=== PATIENT | female | born 1990 | race Caucasian/White ===

== ENCOUNTER 2018-01-08 23:39 | Emergency (ER) | payer MEDICAID, SELFPAY ==
[2018-01-08 23:40] VITALS: BP 120/78; PULSE 83; RESP 16; TEMP 36.7; O2SAT 98; BMI 20.5
--- NOTE | 2018-01-08 23:51 | ED.VISSUMM ---
- ER Visit Summary Date of Service: 01/08/18 Chief Complaint: Dental pain History of Present Illness: The patient is a 27 F known prior history of drug addiction for which she is currently states she has been sober. Patient recently saw her dentist was placed on ibuprofen and amoxicillin for dental decay and cavities. States she is having some numbness of her left lower lip. No other symptoms. Physical Examination: Well appearing young female. No acute distress. Vital signs are stable afebrile. H EENT exam no facial trauma. She has 2 piercings just below her left lower lip. The lip is not swollen. There is no facial droop. No difficulty smiling. Her mouth exam shows multiple areas of severe dental decay and cavities. Some of the teeth are already eroded down to the gumline. There are areas of gingivitis. No abscess. No trismus. No trouble swallowing or breathing. No drooling. Neck nontender no lymphadenopathy. Lungs clear to auscultation. Heart regular rhythm no murmur. Otherwise exam unremarkable. Test Results: None Emergency Department Course and Treatment: Clinically the patient has an unremarkable exam other than very poor dentition with dental decay and cavities. Also gingivitis. She is currently on amoxicillin and ibuprofen. She does not want any narcotic pain medication nor would I prescribe her any with her past medical history of addiction. Treatment Plan: Follow-up with her dentist as needed. Disposition: Discharge Impression: Acute on chronic dental pain and decay secondary to cavities and gingivitis History of prior drug addiction This note was generated with [employer] dictation software. It may contain incorrect words, spelling, and punctuation that were not noted in review of the chart prior to signing ED Disposition - Plan for ED Patient: Chief Complaint: Dental Referrals: Care Physician,No Primary [Primary Care Provider] -
--- NOTE | 2018-01-08 23:54 | ED.DCSUM_ITS ---
- ER Visit Summary Date of Service: 01/08/18 Chief Complaint: Dental pain History of Present Illness: The patient is a 27 F known prior history of drug addiction for which she is currently states she has been sober. Patient recently saw her dentist was placed on ibuprofen and amoxicillin for dental decay and cavities. States she is having some numbness of her left lower lip. No other symptoms. Physical Examination: Well appearing young female. No acute distress. Vital signs are stable afebrile. H EENT exam no facial trauma. She has 2 piercings just below her left lower lip. The lip is not swollen. There is no facial droop. No difficulty smiling. Her mouth exam shows multiple areas of severe dental decay and cavities. Some of the teeth are already eroded down to the gumline. There are areas of gingivitis. No abscess. No trismus. No trouble swallowing or breathing. No drooling. Neck nontender no lymphadenopathy. Lungs clear to auscultation. Heart regular rhythm no murmur. Otherwise exam unremarkable. Test Results: None Emergency Department Course and Treatment: Clinically the patient has an unremarkable exam other than very poor dentition with dental decay and cavities. Also gingivitis. She is currently on amoxicillin and ibuprofen. She does not want any narcotic pain medication nor would I prescribe her any with her past medical history of addiction. Treatment Plan: Follow-up with her dentist as needed. Disposition: Discharge Impression: Acute on chronic dental pain and decay secondary to cavities and gingivitis History of prior drug addiction This note was generated with [email or web address] dictation software. It may contain incorrect words, spelling, and punctuation that were not noted in review of the chart pr ior to signing ED Disposition - Plan for ED Patient: Chief Complaint: Dental Referrals: Care Physician,No Primary [Primary Care Provider] -
--- NOTE | 2018-01-08 23:54 | ED.DEP ---
ED Disposition - Plan for ED Patient: Disposition: Home or Assisted Living Chief Complaint: Dental Instructions: ED Tooth Pain, ED Cavity Dental Additional Instructions: Continue your current medications. Follow-up with your dentist as needed.
[2018-01-09 00:14] VITALS: PULSE 86; RESP 16; O2SAT 98
== END 2018-01-09 00:14 | disposition home or self-care (01) ==
PROVIDERS: Emergency Provider Emergency Medicine
DX: K05.10 Chronic gingivitis, plaque induced (principal); K02.9 Dental caries, unspecified; F19.21 Other psychoactive substance dependence, in remission
CPT/HCPCS: 99282

== ENCOUNTER 2019-01-13 13:44 | Emergency (ER) | payer SELFPAY ==
[2019-01-13 13:45] VITALS: BP 124/78; PULSE 75; RESP 14; TEMP 36.4; O2SAT 96; BMI 23.6
--- NOTE | 2019-01-13 14:11 | CT_ITS ---
STUDY: CT ABDOMEN AND PELVIS WITHOUT CONTRAST REASON FOR EXAM: Female, 28 years old. Left lower quadrant pain with nausea and vomiting RADIATION DOSAGE (If Supplied By Facility): CTDIvol = ( 6.67 ) mGy, DLP = ( 331.69 ) mGycm TECHNIQUE: Transaxial images were obtained from the dome of the diaphragm to the symphysis pubis without oral contrast, and without intravenous contrast. Sagittal and coronal images were reconstructed. Individualized dose optimization techniques were used for this CT. COMPARISON: None. FINDINGS: The visualized lung bases are unremarkable. The visualized portions of the heart are within normal limits. Normal liver. Normal gallbladder and extrahepatic biliary system. Normal spleen. Normal pancreas. Normal bilateral adrenal glands. Normal right kidney. Mild left hydronephrosis and hydroureter with 3 mm calculus in the left UVJ (on image 150. Normal visualized stomach. Normal small intestine. Normal colon. There is non-visualization of the appendix. Normal abdominal aorta. Normal inferior vena cava. Normal retroperitoneum. Normal urinary bladder. Normal abdominal wall. Normal osseous structures. CT/Abdomen/Pelvis without Cont IMPRESSION: 3 mm left UVJ calculus with mild hydronephrosis. Electronically Signed: Shan Parekh MD ([place]) at 15:27 EDT , Service support ,
--- NOTE | 2019-01-13 14:12 | ED.VIS.GEN ---
History of Present Illness Chief Complaint: Abd Pain Detail of Chief Complaint: Left lower quadrant pain Informant: Patient Onset: Days - 5 days Context: Sudden Onset Timing: Waxes and wanes Current Severity: Mild Maximum Severity: Moderate Narrative: Patient presents with left lower quadrant abdominal pain that started last Monday. She states that day she had nausea and vomiting as well. Nausea and vomiting resolved, but she continues to have intermittent pain in the left lower quadrant. Her menstrual cycle ended the day her symptoms started. She has not had diarrhea. She denies history of ovarian cyst. Past Medical History - Allergies and Home Meds Allergies/Adverse Reactions: Allergies latex Allergy (Verified 01/13/19 13:47) Hives Opioids - Morphine Analogues Adverse Reaction (Verified 01/13/19 13:47) Other RECOVERY ADDICT DOES NOT WANT OPIODS Primary Care Physician: Care Physician,No Primary [Primary Care Provider] - Prior records reviewed: Yes Past Medical History: - - Reviewed Surgical History: no surgical history Smoking Status: Former smoker Review of Systems General: Denies: Chills, Fever Eyes: Denies: Visual changes - bilaterally ENT: Denies: Bilateral ear pain Cardiovascular: Denies: Chest pain Respiratory: Denies: Dyspnea, Cough Gastrointestinal: Reports: Abdominal pain, Nausea, Vomiting. Denies: Diarrhea Genitourinary: Denies: Dysuria, Hematuria Musculoskeletal: Denies: Myalgias Skin: Denies: Rash Neurological: Denies: Headache Hematologic: Denies: Easy bruising Allergy: Denies: Uticaria Physical Exam Vital Signs/Narrative: Vital Signs Temp Pulse Resp BP Pulse Ox 01/13/19 13:45 97.5 F L 75 14 124/78 H 96 Inital Vital Signs reviewed: Yes General: Well nourished, Well developed Head: Normocephalic ENT: Moist mucous membranes Neck: Supple Cardiovascular: Regular rate, Regular rhythm Respiratory: No distress, CTA bilaterally Abdomen: Soft, Normal bowel sounds, Tender - Mild left lower quadrant tenderness to palpation.. Negative for: Guarding, Rebound tenderness Back: Negative for: CVA tenderness Extremities: Nontender Skin: Normal color Neurological: Alert, Oriented x3 Psychological: Normal affect Diagnostic/Tx/Re-eval Impressions Abdomen/Pelvis CT 01/13/19 14:11 IMPRESSION: 3 mm left UVJ calculus with mild hydronephrosis. Electronically Signed: Shan Parekh MD ([place]) at 15:27 EDT , Service support , 01/13/19 14:11 Abdomen/Pelvis without Cont [CT] Stat Laboratory Results 01/13/19 01/13/19 01/13/19 14:34 14:41 14:41 WBC 6.3 RBC 4.08 L Hgb 12.6 Hct 37.7 MCV 92.4 MCH 30.9 MCHC 33.4 RDW Std Deviation 42.6 RDW Coeff of Nasrin 12.6 Plt Count 274 MPV 9.7 Immature Gran % (Auto) 0.200 Neut % (Auto) 56.0 Lymph % (Auto) 31.0 [place] % (Auto) 7.6 Eos % (Auto) 4.3 Baso % (Auto) 0.9 Absolute Neuts (auto) 3.6 Absolute Lymphs (auto) 1.96 Nucleated RBC % 0 Sodium 139 Potassium 3.6 Chloride 108 H Carbon Dioxide 26.0 Anion Gap 5 BUN 9 Creatinine 0.64 Estim Creat Clear Calc 112.00 Est GFR (MDRD) Af Amer 139 Est GFR (MDRD) Non-Af 115 BUN/Creatinine Ratio 14.0 Glucose 99 Calcium 8.8 Serum , Qual Urine Color Yellow Urine Clarity Sl. Cloudy Urine pH 6.5 Ur Specific [place] 1.010 Urine Protein Negative Urine Glucose (UA) Normal Urine Ketones Negative Urine Occult Blood 150 H Urine Nitrite Negative Urine Bilirubin Negative Urine Urobilinogen Normal Ur Leukocyte Esterase 25 H Urine RBC 0-5 SEEN Urine WBC 0 SEEN Ur Squamous Epith Cells 0-5 SEEN Urine Bacteria RARE Urine Mucus 0 SEEN 01/13/19 14:41 WBC RBC Hgb Hct MCV MCH MCHC RDW Std Deviation RDW Coeff of Nasrin Plt Count MPV Immature Gran % (Auto) Neut % (Auto) Lymph % (Auto) [place] % (Auto) Eos % (Auto) Baso % (Auto) Absolute Neuts (auto) Absolute Lymphs (auto) Nucleated RBC % Sodium Potassium Chloride Carbon Dioxide Anion Gap BUN Creatinine Estim Creat Clear Calc Est GFR (MDRD) Af Amer Est GFR (MDRD) Non-Af BUN/Creatinine Ratio Glucose Calcium Serum , Qual NEGATIVE Urine Color Urine Clarity Urine pH Ur Specific [place] Urine Protein Urine Glucose (UA) Urine Ketones Urine Occult Blood Urine Nitrite Urine Bilirubin Urine Urobilinogen Ur Leukocyte Esterase Urine RBC Urine WBC Ur Squamous Epith Cells Urine Bacteria Urine Mucus - Medical Decision Making Patient was given Toradol on arrival. On repeat evaluation she does feel improved. Test results are discussed with her. She does have a 3 mm stone, just ready to fall into the bladder. Patient states the Toradol controlled her pain very well. She will be given Toradol for home along with Flomax. She will be referred to Dr. Fernandez if not improving. ED Disposition - Plan for ED Patient: Disposition: Home or Assisted Living Diagnosis: Kidney stone on left side Instructions: KIDNEY STONE w/ Colic Prescriptions: Tamsulosin HCl [Flomax] 0.4 mg PO DAILY #5 capsule Ketorolac [Toradol] 10 mg PO Q6H PRN #14 tablet PRN Reason: Pain Score 1-10/10 Referrals: Jung Fernandez MD [STAFF PHYSICIAN] - As Needed
[2019-01-13 14:38] LABS: Mucous, Urine 0 SEEN /hpf (<or=2+); White Blood Cells 0 SEEN /hpf (0-5)
[2019-01-13 14:41] LABS: Color, Urine Yellow (Yellow); Glucose, Dipstick Normal (Normal); Ketone-Dipstick Negative (Negative); Leukocyte Esterase-Dipstick 25 /ul (Negative); Nitrite-Dipstick Negative (Negative); Occult Blood-Urine 150 /ul (Negative); Protein-Dipstick Negative (Negative); Urine Bilirubin Dipstick Negative (Negative); Urine Clarity Sl. Cloudy (Clear); Urine Urobilinogen Normal (Normal); Urine pH 6.5 (5.0 - 8.0)
[2019-01-13 14:46] LABS: Absolute Lymphocyte Count 1.96 X10^3/uL (0.83-4.51); Absolute Neutrophil Count 3.6 X10^3/uL (2.0-7.7); Basophil# 0.06 X10^3/uL; Basophil% 0.9 % (0-1); Eosinophil# 0.27 X10^3/uL; Eosinophils% 4.3 % (0-5); Hematocrit 37.7 % (37-47); Hemoglobin 12.6 g/dL (12.0-15.0); Lymphocyte # 1.96 X10^3/ul (4.0); Mean Corp Hgb Conc 33.4 g/dL (32-36); Mean Corpuscular Hgb 30.9 pg (27.0-32.0); Mean Corpuscular Volume 92.4 fL (81-99); Mean Platelet Vol. 9.7 fl (6.2-12.0); Monocyte# 0.48 X10^3/uL; Monocyte% 7.6 % (0-10); NRBC Flagged by Analyzer 0 % (0-5); Neutrophil # 3.55 X10^3/uL (2.7-7.7); Platelet Count 274 K/mm3 (150-450); RBC Distribution Width CV 12.6 % (11.6-14.6); RBC Distribution Width SD 42.6 fl (35.1-43.9); Red Blood Count 4.08 M/mm3 (4.2-5.4); White Blood Count 6.3 K/mm3 (4.4-11.0)
[2019-01-13 14:50] LABS: Bacteria RARE /hpf (None Seen); Red Blood Cells-Urine 0-5 SEEN /hpf (0-5); Squamous Epithelial Cells - UA 0-5 SEEN /hpf (5-10)
[2019-01-13] MEDS: 0.9% Normal Saline 1,000 ML 150 ML IV (14:54)
[2019-01-13] MEDS: Ketorolac 30 MG/ML Syringe IV (14:54)
[2019-01-13 14:59] LABS: Anion Gap 5 (5-15); BUN 9 mg/dL (7-18); Calcium,Total 8.8 mg/dL (8.5-10.1); Chloride 108 mmol/L (98-107); Creatinine, Serum 0.64 mg/dL (0.55-1.02); EST Glomerular Filtration Rate 115 mL/min (>60); Est Glom Filt Rate - Afr Amer 139 mL/min (>60); Glucose 99 mg/dL (74-106); Potassium 3.6 mmol/L (3.5-5.1); Sodium Level 139 mmol/L (136-145)
[2019-01-13 15:02] LABS: Internal QC Validated? YES +Cl - CLEAR BKGD; Pregnancy, Serum, hCG Quali. NEGATIVE Negative
[2019-01-13 15:39] VITALS: BP 108/74; PULSE 54; RESP 16
== END 2019-01-13 15:46 | disposition home or self-care (01) ==
PROVIDERS: Emergency Provider Emergency Medicine
DX: N13.2 Hydronephrosis with renal and ureteral calculous obstruction (principal); Z87.891 Personal history of nicotine dependence; Z88.5 Allergy status to narcotic agent; Z91.040 Latex allergy status
CPT/HCPCS: 74176; 80048; 81001; 84703; 85025; 96361; 96374; 99283; J7030; A4216

== ENCOUNTER → 2022-10-07 | Outpatient (CLI) | payer MEDICAID, SELFPAY ==
[2022-10-07 15:10] LABS: Hematocrit 36.6 % (37-47); Hemoglobin 12.5 g/dL (12.0-15.0); Mean Corp Hgb Conc 34.2 g/dL (32-36); Mean Corpuscular Hgb 31.6 pg (27.0-32.0); Mean Corpuscular Volume 92.4 fL (81-99); Mean Platelet Vol. 11.5 fl (6.2-12.0); Platelet Count 265 K/mm3 (150-450); RBC Distribution Width CV 12.5 % (11.6-14.6); RBC Distribution Width SD 42.5 fl (35.1-43.9); Red Blood Count 3.96 M/mm3 (4.2-5.4); White Blood Count 5.7 K/mm3 (4.4-11.0)
[2022-10-07 15:36] LABS: ALB/GLOB Ratio 1.1 RATIO (0.9-2.4); AST(SGOT) 31 U/L (15-37); Alanine Aminotransfer ALT/SGPT 152 U/L (13-56); Albumin, Serum 3.9 g/dL (3.2-5.0); Alkaline Phosphatase 52 U/L (45-117); Anion Gap 6 (5-15); BUN 7 mg/dL (7-18); BUN/Creat Ratio 10.2 RATIO (10-20); Calcium,Total 8.6 mg/dL (8.5-10.1); Chloride 108 mmol/L (98-107); Cholesterol 209 mg/dL (200); Creatinine, Serum 0.68 mg/dL (0.55-1.02); EST Glomerular Filtration Rate 105 mL/min (>60); Est Glom Filt Rate - Afr Amer 127 mL/min (>60); Globulin 3.5 g/dL (2.2-4.2); Glucose 104 mg/dL (74-106); High Density Lipoprotein 55 mg/dL; Iron Binding Capacity,Total 315 ug/dL (250-450); Potassium 3.6 mmol/L (3.5-5.1); Protein, Total 7.4 g/dL (6.4-8.2); Sodium Level 137 mmol/L (136-145); Thyroid Stim Hormone (TSH) 0.28 uIU/mL (0.358-3.74); Triglycerides 65 mg/dL; Very Low Density Lipoprotein 13 mg/dL (5-40)
[2022-10-07 15:37] LABS: Vitamin D,25 Hydroxy 25.2 ng/mL
[2022-10-07 15:40] LABS: Hemoglobin A1c 4.9 % (3.8-5.6)
== END | disposition home or self-care (01) ==
PROVIDERS: Referring Provider Counselor Mental Health; Visit Provider Counselor Mental Health
DX: Z79.899 Other long term (current) drug therapy (principal); E55.9 Vitamin D deficiency, unspecified; E78.2 Mixed hyperlipidemia; E61.1 Iron deficiency
CPT/HCPCS: 36415; 80053; 80061; 82306; 83036; 83550; 84443; 85027

== ENCOUNTER 2023-08-07 09:25 | Outpatient (RCR) | payer MEDICAID, SELFPAY ==
--- NOTE | 2023-08-07 09:01 | BH.SGPN.GN ---
Behaviors/Verbalizations/Mental Status: [] Pt eye contact good, casually dressed, motor activity appropriate, speech normal rate and tone, mood euthymic and anxious, congruent affect, thoughts linear and intact, no evidence of delusions or hallucinations. Per daily symptom tracker pt denies active SI and intention. Client Response/Progress/Benefit: [] Client appeared to listen attentively to others and sharing openly with group. Per daily sympton tracker client reports 3/5 for anxiety and 0/5 for depression. Client reported mental health positive as quitting marijuana five days ago. Client shared she started to realize how much marijuana was negatively impacting her mental health so really wants to stop using it completely. Client reported additional positive is showing up to IOP for her first day today. Appeared to benefit from support from peers. Will continue IOP tx to improve daily functioning, increase healthy coping skills, and prevent decopmensation.
--- NOTE | 2023-08-07 09:30 | BH.COMM_ITS ---
Communication Note Communication with Client Communication Note: Met with patient to update pre-admission screening and complete psychosocial and initial paperwork. Completed [place] Suicide Screening with low risk. Review case with Dr. Taylor with plan to start IOP today with diagnosis of F33.2.
--- NOTE | 2023-08-07 10:10 | BH.SGPN.GN ---
Behaviors/Verbalizations/Mental Status: [] Eye contact is good. Motor activity is appropriate. Appearance is casual. Speech is Appropriate. Mood is anxious. Affect is congruent. Thoughts are linear and logical. No evidence of psychosis. Client Response/Progress/Benefit: [] Pt participated at times. Attentive. Participated in and was engaged during experiential activity. Able to relate experiential activity to group topic of FOF. Engaged during interactive discussion on what failure means to the group in which peers identified and defined failure and Fear of Failure. Group was able to identify impact of fear of failure on mental health identifying that it can cause procrastination, avoidance, self-sabotage behaviors, etc. Attentive during interactive discussion on the impact that FOF can have on mental wellness, depression, anxiety, career, relationships, and growth. Benefited from increased awareness of how the role that FOF plays in mental health and decision-making. Will continue in IOP prevent decompensation, stabilize mood, and improve healthy coping skills. Narrative Note: []
--- NOTE | 2023-08-07 11:08 | BH.SGPN.GN ---
Behaviors/Verbalizations/Mental Status: []Pt alert and oriented, neatly dressed and groomed. Eye contact good. Motor activity appropriate. Speech within normal limits. Affect congruent, mood euthymic and anxious. Thoughts linear, logical, no signs of hallucinations or delusions. Client Response/Progress/Benefit: []Pt responded well to session, engaged in the experiential activity and attentive throughout group processing. Pt reported fear of failure has kept pt from coming out and quitting drugs in the past. Pt completed fear of failure worksheet and was able to identify thoughts and behaviors that reinforce personal fear of failure including self-fulfilling prophecies, negative core beliefs, and procrastinating. Pt participated in group discussion regarding strategies to overcome fear of failure. Identified wanting to work on using opposite action and noting how it went and avoiding unnecessary stressors. Appeared to benefit from increased knowledge of strategies to combat fear of failure and gaining self-awareness. Pt will continue IOP tx to prevent decompensation, improve daily functioning, and gain healthy coping skills. Narrative Note: []
--- NOTE | 2023-08-08 09:05 | BH.SGPN.GN ---
Behaviors/Verbalizations/Mental Status: [] Pt alert and oriented, neatly dressed and groomed. Eye contact good. Motor activity appropriate. Speech within normal limits. Affect congruent, mood anxious. Thoughts linear, logical, no signs of hallucinations or delusions. Reviewed pt?s symptom tracker, no risk for suicidal ideation, plan, or intent 08/08/23 Client Response/Progress/Benefit: []Pt responded well to session, attentive and engaged. Pt reports feeling empowered this morning and shared I think I'm getting a hold of this. Pt's second day of IOP tx and she shared she enjoyed it so far. Pt stated her stressor/win is that pt decided to stop smoking marijuana and this has been a good thing and a challenge. Pt discovered that when she smoked she became more paranoid, but smoking was also a way to avoid. Pt is currently six days sober and she has been trying to distract herself to prevent a relapse. Pt appeared to benefit from connecting with peers and getting feedback. Pt will continue IOP tx to prevent decompensation, gain healthy coping skills, and combat distortions. Narrative Note: []
--- NOTE | 2023-08-08 10:05 | BH.SGPN.GN ---
Behaviors/Verbalizations/Mental Status: [] Client alert and oriented, casually dressed and groomed. Eye contact good. Motor activity appropriate. Speech within normal limits. Affect congruent, mood anxious and euthymic. Thoughts linear, logical, no signs of hallucinations or delusions. Client Response/Progress/Benefit: [] Client was an active participant, AEB taking notes and providing input in group discussions and activities. Attentive during psychoeducation. Client engaged during interactive discussion in which the group defined self-care and discussed its benefits. Group discussed barriers to engaging in self-care. Group members together came up with guilt, anxiety, and feeling weak as barriers to engage in self care. Client participated in small groups where they worked to identify common self-care ?myths?. Benefited from increased awareness of self-care, its benefits, and the consequences of not utilizing self-care strategies. Will continue IOP tx to prevent decompensation, promote healthy coping skill application, and continue to improve mood stability. Narrative Note: []
--- NOTE | 2023-08-08 11:05 | BH.SGPN.GN ---
Behaviors/Verbalizations/Mental Status: [] Client alert and oriented, casually dressed and groomed. Eye contact good. Motor activity appropriate. Speech within normal limits. Affect congruent, mood anxious and euthymic. Thoughts linear, logical, no signs of hallucinations or delusions. Client Response/Progress/Benefit: [] Client engaged participant AEB completing self-assessment of current self care and providing input throughout discussion. Client completed worksheet identifying current self-care practices and what self-care activities client wants to start using. Client selected financial self-care to begin practicing more consistently. Client plans to do this by setting a budget for herself. Appeared to benefit from completing the self-care evaluation and gaining insights into current self-care practices, as well as identifying areas in which client would like to improve upon. Client will continue IOP tx to prevent decompensation and increase overall functioning. Narrative Note: []
--- NOTE | 2023-08-09 09:00 | BH.NA_ITS ---
Physical Data Vital Signs Pulse Rate: 91 Blood Pressure: 114/77 Height/Weight Height: 1.63 m Weight:: 54.431 kg Weight in Pounds: 120.0 lbs Current Medication Compliance Medication Compliance Do you take your medication as prescribed?: Yes Nutritional History Appetite Nutritional Instructions: Describe your appetite:: Good Additional nutritional information:: Client states she had no appetite for 3 days after stopping the use of marijuana, but states her appetite has returned. Denies recent change in weight. Functional Assessment Sleep Pattern Describe any problems with sleeping: Client states she has been sleeping 8-10 hours per day. Sensory/Communication Assess Communication Problems Do you have difficulty understanding what people are saying?: No Medical Problems/History Genitourinary Conditions Genitourinary: Other (See comments) (history of kidney stones) Pain Assessment Do you have acute or chronic pain?: No Surgical History Surgical History Have you had any surgeries? If so, list type and date:: No Substance Abuse Substance Abuse Please describe substance abuse in the last 30 days:: Client states she has been sober from alcohol since March 2023. Client states she vapes nicotine usually at night right before bed but none during the day. Client has a history of meth and opioid use, states she has been sober for 5 years. Client has morphine listed as an allergy in her chart because she does not want to take any opioids due to wanting to keep her sobriety. Client states for the last 2 years or so, she had been using copious amounts of marijuana daily. Client states she has been sober from marijuana for 7 days. Client states she drinks 1-2 energy drinks per day, but states she never uses more than 300mg of caffeine per day. Mental Status Summary Mental Status Significant Findings/Observations on Appearance and Mood:: Client is alert and oriented x 4. Client is casually groomed. Client is cooperative with assessment. Client makes good eye contact. Client's voice has normal rate and volume. Client appears somewhat anxious with a mood congruent affect. Client makes logical associations and has normal processing. Client states she had been having some paranoia and hallucinations over the last year while using copious amounts of marijuana (being paranoid that her neighbors knew everything she was doing and saying, hearing voices) but these have completely stopped since she stopped using marijuana. Client denies current SI. Suicide Assessment Suicidal Ideation Are you currently or have you been suicidal in the past?: Yes Suicidal Intentional Rating Scale (SIRS): Suicidal thoughts (past) Physician Notification Past Psychiatric History MH Treatment Hx Past Psychiatric Medications:: Ativan, Remeron, Trazodone Age of first mental health symptoms: Client states she was first on medication for mental health around age 15, and has been on and off medication since. Client states she was diagnosed with bipolar around 2009 when she was hospitalized while in the [place]. Describe (age, circumstance, etc) any past hospitalizations: Client states she was hospitalized at the age of 15 or 16 at [facility] after a suicide attempt, and once around 2009 when she was in the [place] for SI with a plan. Client states she has had 5 suicide attempts in the past, the last being 2018. Fall Risk Assessment Age Age: Less than 60 Mental Status Mental Status: Willing & able to ask for assistance when needed Physical Status Physical Status: No problems Impairments Impairments: None Elimination Elimination: Continent AND independent Gait or Balance Gait or Balance: Walks independently Hx of Falls History of falls in the past 6 months: No known history Medications/Substances Psychotropics:: Antidepressants and Antipsychotics Medications/substances used within the past 24 hours or ordered to administer: 1-2 of the medications/substances listed above Total Score Total Points:: 1 RN Summary of Impressions Impressions Recommendations Impressions: Psychiatric Issues: 1. Bipolar 1 disorder, most recent episode depression in partial remission (F31.75) 2. Generalized anxiety disorder 3. Marijuana use disorder (sober x 1 week) 4. Alcohol use disorder (sober x 5 months) 5. 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 Client states she has been having emotional outbursts, and she knows this is affecting her girlfriend and her mom. Client reports irritability, mood instability, and decreased concentration. Client states she had been having paranoia and hallucinations when she was using copious amounts of marijuana, but states she has been sober for 7 days and hallucinations have subsided. Client has a history of 5 suicide attempts. Client denies SI at this time. Client states I feel like my medication is working pretty well, but I could really use some skills to help me cope. IOP will promote gains and prevent further decompensation while providing social support and skills training.
--- NOTE | 2023-08-09 09:05 | BH.SGPN.GN ---
Behaviors/Verbalizations/Mental Status: [] Eye contact is good. Motor activity is restless. Appearance is casual. Speech is Appropriate. Mood is anxious. Affect is congruent. Thoughts are linear and logical. No evidence of psychosis. Reviewed daily check in sheet and no reports of suicidal ideations or intent. Client Response/Progress/Benefit: [] Pt was an active participant in group discussion. Attentive. Daily symptom tracker notes 2/5 for anxiety and agitation. Reports feeling exhausted today, however also believes that she may be hypomanic. Discussed suspicion that trigger to hypomania could be stopping cannabis. Also reports how stopping cannabis significantly reduced depression, paranoia and hallucinations. Medication compliant however her mood has been erratic with emotional outbursts often in the past year. She talked a great deal about the negative impacts of cannabis and how she minimized its use because its wasn't a hard drug. Benefited from group support, encouragment, and feedback. Will continue in IOP to prevent decompensation, stablize mood, and increase healthy coping skills. Narrative Note: []
[2023-08-09 09:41] VITALS: BP 114/77; PULSE 91
--- NOTE | 2023-08-09 11:10 | BH.SGPN.GN ---
Behaviors/Verbalizations/Mental Status: [] Client alert and oriented, casually dressed and groomed. Eye contact good. Motor activity appropriate. Speech within normal limits. Affect congruent, mood anxious. Thoughts linear, logical, no signs of hallucinations or delusions. Client Response/Progress/Benefit: [] Client responded well to session, engaged and taking notes throughout. Worked with group to connect components of the experiential activity with characteristics of healthy and unhealthy relationships. Attentive during psychoeducation about characteristics of healthy, unhealthy, and abusive relationships. Client reported she would like to work on self-soothing to stay calm during conversations and challenge catastrophizing thoughts. Appeared to benefit from identifying current healthy relationship attributes and an area client wants to work on to build healthier relationships. Client to continue IOP to improve distress tolerance, increase healthy coping skills, and prevent decompensation.
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
--- NOTE | 2023-08-09 12:17 | BH.DR.ITP ---
Initial Treatment Plan Patient Information Visit Information: ADMISSION DATE: EXPECTED LOS: 4-6 weeks Problems/Symptoms Problem #1:: Erratic moods Symptom:: Sadness, irritability, anger outbursts, history of biological disruption of sleep, low energy, decreased concentration, guilt. Problem #2:: Anxiety Symptom:: Worry, panic attacks, rumination, restlessness, avoidance
--- NOTE | 2023-08-09 14:37 | BH.MDN ---
Multi-Disciplinary Note Note 60-min Individual: Time Started:: 12:20 Date: 08/09/23 Purpose of session/treatment goals addressed:: Purpose of session was to gather background information, build rapport, and identify treatment goals for IOP level of care. Eye Contact:: Good Motor Activity:: Restless Appearance:: Casual Speech:: Rambling and Rapid Mood:: Anxious Affect:: Congruent Thoughts:: Logical, Racing and No evidence of hallucinations/delusions noted Staff Interventions:: CBT techniques, rapport building, strengths perspective, treatment planning and goal setting Client Response:: Client stated so far she is enjoying IOP since starting this week. Client reported she is seeking treatment because she recognizes her ability to manage her emotions as a challenge which often leads her to either relapse on alcohol/drugs or sabotage her relationship. Client stated her girlfriend recommended client to this program and client realized after a recent disagreement she needs help with mood stabilization and help with managing emotions in the moment. Client reported her girlfriend is very supportive but they've had their ups and downs in the last year and a half. Client stated they broke up in February after client started to drink alcohol again but got back together in March when she got sober again From alcohol. Client shared she has significant history of alcohol and drug use throughout her life. Client shared she first used opiates In marijuana at age 13 and she first used her mom's opiates until she was 20 years old. At age 20 she began snorting painkillers and did heroin 3-4 times but at 25 years old became sober from opiates. She then began using methamphetamine from age 26 to age 28 for about 2 years and then went to rehab for this in 2018 and has been sober from hard drugs since except for marijuana and alcohol. That stated she has been sober from alcohol since April 03, 2023. She quit cigarette use in 2019. She started using marijuana about 2-1/2 years ago and quit it 1 week ago because felt it was not beneficial. Client shared she recognizes her marijuana use was contributing to paranoia. Client stated since being sober from marijuana over the last week she no longer is hearing things that aren't there. Client reported while she's in IOP she really wants to learn how to manage distress more effectively and improve her ability to recognize her own emotions. Risks/Concerns:: Client denies suicidal ideation, plan, or intention to date. future oriented. Progress Toward Goals/Plan:: No progress observed, first week in IOP. Client struggling with emotion regulation, erratic moods, and irritability which negatively impacts her relationships. Client has long history of substance use, but reports sobriety from alcohol and drugs. Client expresses desire to maintain sobriety because she recognizes it will help her gain more from the program. Client is to continue IOP to improve mood stability, improve distress tolerance, and prevent decompensation. Time Stopped:: 13:15
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
--- NOTE | 2023-08-09 14:39 | BH.MTP ---
[facility] Treatment Plan Patient Information Program Physician:: Dr. Taylor Primary Therapist:: Josie Rogers, [facility] Psychiatric Diagnoses Psychiatric Diagnoses:: 1. Bipolar 1 disorder, most recent episode depression in partial remission (F31.75) 2. Generalized anxiety disorder 3. Marijuana use disorder (sober x 1 week) 4. Alcohol use disorder (sober x 5 months) 5. Methamphetamine and opiate use disorder (sober x 5 years) in full remission Diagnosis Code(s):: F31.75 Estimated LOS Estimated LOS (in weeks):: 6 Problem/Goal #1 Problem/Goal #1 Stated Goal:: Client will increase mood stability and decrease depressive symptoms, anger/irritability, and suicidal ideation due to Bipolar I through Intensive Outpatient Program. Description of Barriers: Potential barriers include recent sobriety, negative thought patterns, agitation, erratic moods, and impulsivity. Functional Impact: The patient is a 33-year-old single female with a history of bipolar 1 disorder and anxiety who was referred by her partner to the [facility] behavioral health IOP for erratic moods, irritability and anger outbursts. The patient also has a history of methamphetamine/opiate use disorder (sober x 5 years) and alcohol use disorder (sober x 4 months). The patient was on [facility] from [employer] for 12 years for mental health issues. Patient states that since stopping marijuana 7 days ago she no longer feels as depressed and feels that she could be getting a little hypomanic but is uncertain. Energy is somewhat increased overall but this could be due to energy drinks she says. Concentration is a little decreased. She denies passive thoughts of , suicidal ideation, plan for suicide, homicidal ideation. Objectives Objective #1: Stated Objective: Client will learn and utilize 2-3 healthy coping strategies to manage depressive symptoms. Interventions: Therapist will utilize CBT techniques to assist client with understanding the connection between thoughts, feelings and behaviors. Education will be provided on behavioral activation. Therapist will assist client in learning internal coping strategies to manage depressive symptoms, along with helping client identify triggers. Discharge Criteria: Client will have achieved this goal when can verbalize and has practiced at least 2 healthy coping strategies that successfully manage depressive symptoms. Target Date: 09/18/23 Review Date: 09/04/23 Objective #2: Stated Objective: Client will identify and replace 2-3 negative thinking patterns that reinforce depression and feelings of agitation. Interventions: Assist the client in identifying, challenging, and replacing dysfunctional thoughts with positive self-enhancing thoughts. Discharge Criteria: Client will have achieved this goal when can identify at least 2 negative thinking patterns and replace thoughts with rational thoughts. Target Date: 09/18/23 Review Date: 09/04/23 Problem/Goal #2 Problem/Goal #2 Stated Goal:: Stabilize anxiety level while increasing ability to function on daily basis. Description of Barriers: Potential barriers include recent sobriety, negative thought patterns, agitation, erratic moods, and impulsivity. Functional Impact: The patient is a 33-year-old single female with a history of bipolar 1 disorder and anxiety who was referred by her partner to the [facility] behavioral health IOP for erratic moods, irritability and anger outbursts. The patient also has a history of methamphetamine/opiate use disorder (sober x 5 years) and alcohol use disorder (sober x 4 months). The patient was on disability from [employer] for 12 years for mental health issues. Patient states that since stopping marijuana 7 days ago she no longer feels as depressed and feels that she could be getting a little hypomanic but is uncertain. Energy is somewhat increased overall but this could be due to energy drinks she says. Concentration is a little decreased. She denies passive thoughts of , suicidal ideation, plan for suicide, homicidal ideation. Objectives Objective #1: Stated Objective: Client will learn and implement 2-3 calming skills to reduce overall anxiety and manage anxiety symptoms. Interventions: Therapist and group sessions will help client identify physiological warning signs of anxiety, increase awareness of thoughts that increase anxiety, and identify behaviors that reinforce anxious symptoms. Group and individual counseling will teach client calming skills to help manage anxious symptoms. Discharge Criteria: Client will have achieved this goal when can verbalize at least 2 calming skills and reports skills successfully help reduce anxious symptoms. Target Date: 09/18/23 Review Date: 09/04/23 Objective #2: Stated Objective: Client will identify 2-3 anxiety triggers and 2 coping skills to use when feeling anxious. Interventions: Therapist will assist client in exploring what triggers anxiety and teach client coping strategies to effectively manage anxiety symptoms. Discharge Criteria: Client will have met this goal when can identify at least 2 triggers to anxiety and verbalize two healthy ways to cope with feelings of anxiety. Target Date: 09/04/23 Review Date: 09/18/23
--- NOTE | 2023-08-15 09:05 | BH.SGPN.GN ---
Behaviors/Verbalizations/Mental Status: [] Eye contact is good. Motor activity is appropriate. Appearance is casual. Speech is Appropriate. Mood anxious. Affect is congruent. Thoughts are linear and logical. No evidence of psychosis. Reviewed daily check in sheet and no reports of suicidal ideations or intent. Client Response/Progress/Benefit: [] Pt was an active participant in group discussion. Attentive. Daily symptom tracker notes / for depression and irritability. She reports difficult weekend. She reports breaking up with her GF and relapsing on cannabis. She elaborated more on the events of the weekend and how they impacted her thoughts, actions, and emotions. Reports panic attacks and depressive thoughts. Ruminating on her relapse and reports beliefs that she is a failure. Benefited from group support, encouragement, and feedback. Peers were able to reframe thoughts, point out growth, and highlight areas which she utilized healthy skills. Pt was able to work through her panic attacks which increased her confidence. She also reports that cannabis use ' didn't help and actually made her thoughts and emotions worse. She also only used once. Pt was also able to complete opposite action and socialize with friends that she hasn't seen in an extended period of time. She didn't isolate when in distress. Will continue in IOP to prevent decompensation, stabilize mood, and improve functioning. Narrative Note: []
--- NOTE | 2023-08-15 10:15 | BH.SGPN.GN ---
Behaviors/Verbalizations/Mental Status: []Eye contact is good. Motor activity is appropriate. Appearance is casual. Speech is Appropriate. Mood is anxious. Affect is congruent. Thoughts are linear and logical. No evidence of psychosis. Client Response/Progress/Benefit: [] Pt was actively engaged, providing input at times, and taking notes throughout session. Connected with the topic of pitfalls and listened to group discussion on internal and external barriers that prevent from choosing a healthier path to mental wellness. Group worked together to identify examples of personal internal pitfalls and pt identified theirs as using unhealthy coping skills, pushing people away, and struggling to accept her diagnosis. Pt benefited from group as pt learned to better identify and normalize potential barriers to improving mental health symptoms. Pt also gained awareness of the difference between external triggers and self-sabotaging behaviors. Will continue in IOP to prevent decompensation, improve daily functioning, and increase distress tolerance skills. Narrative Note: []
--- NOTE | 2023-08-15 11:15 | BH.SGPN.GN ---
Behaviors/Verbalizations/Mental Status: []Pt alert and oriented, casually dressed and groomed. Eye contact good. Motor activity appropriate. Speech within normal limits. Affect congruent, mood anxious and dysthymic. Thoughts linear, logical, no signs of hallucinations or delusions. Client Response/Progress/Benefit: [] Pt receptive of session, engaged throughout AEB actively contributing and listening to discussion, as well as taking notes. Pt participated in the experiential activity and processed with group how their emotions, perspective, and reactions positively and negatively impacted the outcome. Pt identified pitfalls they struggle with and shared wanting to work on pitfall of lack of taking on too much too fast by practicing small attainable goals daily. Benefited from identifying personal pitfalls and strategies to overcome these pitfalls. Will continue IOP tx to prevent decompensation and relapse, further improve daily functioning, and promote mood stability as well as ongoing application of healthy coping skills. Narrative Note: []
--- NOTE | 2023-08-16 09:05 | BH.SGPN.GN ---
Behaviors/Verbalizations/Mental Status: [] Eye contact is good. Motor activity is appropriate. Appearance is casual. Speech is Appropriate. Mood is anxious. Affect is congruent. Thoughts are linear and logical. No evidence of psychosis. Reviewed daily check in sheet and no reports of suicidal ideations or intent. Client Response/Progress/Benefit: [] Pt was an active participant in group discussion. Attentive. Emotion for today is tranquil and more calm. She attributes this to medication changes and decrease in caffeine usage. She had been drinking 2 energy drinks per day for a number of years and recently stopped. I don't have the feeling like my insides are going to burst out. Has gone on several nature walks in recent days and also has been journaling both of which she has found helpful. Overall reports less anxiety, restlessness, and mood stability since medication changes and decrease in caffeine. Progress noted. Benefited from group support, encouragement, and feedback. Will contine in IOP to stablize mood, prevent decompensation, and increase healthy coping. Narrative Note: []
--- NOTE | 2023-08-16 10:10 | BH.SGPN.GN ---
Behaviors/Verbalizations/Mental Status: []Client alert and oriented, casually dressed and groomed. Eye contact good. Motor activity appropriate. Speech within normal limits. Affect congruent, mood euthymic. Thoughts linear, logical, no signs of hallucinations or delusions. Client Response/Progress/Benefit: []Pt engaged in session AEB listening attentively to others and providing input throughout. Pt engaged in activity, able to connect how it can be uncomfortable and difficult to accept when things are out of one?s own control. Pt worked with group to identify what things in life can be hard to accept. Group identified things hard to accept as: change, loss of relationship, mental health diagnosis, other?s behaviors, and finances. Pt identified struggling to accept her bipolar diagnosis and that she will need to take medications for the rest of her life. Seemed to benefit from increased awareness of importance of acceptance. Pt to continue IOP tx to further improve mood stability, application of healthy coping skills, and prevent decompensation.
--- NOTE | 2023-08-16 11:10 | BH.SGPN.GN ---
Behaviors/Verbalizations/Mental Status: []Pt alert and oriented, neatly dressed and groomed. Eye contact good. Motor activity appropriate. Speech within normal limits. Affect congruent, mood anxious. Thoughts linear, logical, no signs of hallucinations or delusions. Client Response/Progress/Benefit: [] Pt responded well to session AEB taking notes and contributing to discussion throughout. Pt engaged as group continued discussion on acceptance and the mental health benefits of practicing acceptance. Pt and peers identified what makes acceptance challenging and pt completed a self-reflection exercise on what is hard to accept in pt's life. Pt identified what is hard to accept in life and how it makes things harder when resists acceptance. Pt reports it is hard to accept that ?my life isn?t together.? Group identified strategies to increase acceptance and pt wants to work on ?I can love someone and not want them in my life.? Pt appeared to benefit from gaining insight and learning strategies to increase acceptance. Pt will continue IOP tx to prevent decompensation, improve distress tolerance, and combat distortions. Narrative Note: []
--- NOTE | 2023-08-16 14:38 | BH.MDN_ITS ---
Multi-Disciplinary Note Note 60-min Individual: Time Started:: 12:05 Date: 08/16/23 Purpose of session/treatment goals addressed:: Purpose of session was to address goals 1 and 2 from MTP. Eye Contact:: Good Motor Activity:: Restless Appearance:: Casual Speech:: Rambling Mood:: Anxious Affect:: Congruent Thoughts:: Logical and No evidence of hallucinations/delusions noted Staff Interventions:: thought challenging, CBT techniques, mindfulness skills, rapport building, strengths perspective, goal setting and taught coping skills Client Response:: Client stated over the weekend she did break up with her girlfriend. Client reported although it may seem impulsive to break up with her girlfriend she believes it was a healthy choice for her after reflecting on it for several days now. Client stated she's come to realize that her and her ex communicate differently and handle problems very differently which is why she thinks they've had consistent issues throughout the relationship. Client reported there was a situation at a [employer] and it led to clients girlfriend making a comment about clients behavior which client thought was an overreaction. Client reported in the moment she decided to leave the republican so that there wasn't a public argument. Client stated what she finds frustrating within the relationship is that her now ex-girlfriend often would want to talk about a situation or disagreement for hours when in client's perspective it could get resolved in less than an hour. Client reported she just realizes it's not something that she thinks is good for her while she's trying to get mentally well. Client stated via text messaging on Monday she broke up with her girlfriend. Client reported she did end up smoking marijuana as a coping skill which she was upset with herself for doing so. Client stated however she thinks it might have been good for her experience because she really didn't enjoy herself being high. Client reported she had no relief and now can refer to this situation to hopefully help her prevent any future relapses. Client stated originally, she did come to [facility] to help her relationship and by her girlfriend?s recommendation. Client reported now that she's not in a relationship she still wants to complete the program with the focus on increasing extracurricular activities, learning anxiety management skills, and learning how to manage her emotions in the moment more effectively. Client said she's going to focus on bettering herself while she's in the program instead of just quitting because she's not in that relationship anymore. Client open to exploring possible volunteering options because she thinks having more structure/routine to her week will decrease boredom and give her purpose. Risks/Concerns:: Denies suicidal ideation, plan, or intention to date. future oriented. Progress Toward Goals/Plan:: Decompensation noted with client having a relapse one day over the weekend as a form of coping with a stressful situation. Client has recovered from this stressor and recognizes use of marijuana/substances doesn't make her feel any better. Client did end relationship over weekend, but in her perspective focusing on herself only will be beneficial to her mental health recovery. Client is to continue IOP to increase consistent use of healthy coping skills, improve emotion regulation, and prevent decompensation. Time Stopped:: 13:05
--- NOTE | 2023-08-18 09:05 | BH.SGPN.GN ---
Behaviors/Verbalizations/Mental Status: [] Eye contact good. Motor activity appropriate. Speech within normal limits. Affect congruent, mood content and anxious. Thoughts linear, logical, no signs of hallucinations or delusions. Reviewed client?s symptom tracker, denies SI, plan, or intent as of 08/18/2023. Client Response/Progress/Benefit: [] Client receptive of session, attentive and willing to process with group. Identified mental health ?wins? today as ?continuing to reduce caffeine and is planning to completely eliminate it from her diet by the end of the weekend. Discussed noticing improvements in her anxiety and ability to focus since reducing caffeine. Additional win noted as putting her facial piercing back in which pt explained signifies an improvement in her mood and reduction of depression as pt reports not wearing them when sad. Current stressor noted as adjusting to being single again and reminding herself of the importance of not jumping into another relationship right away as she would in the past. Receptive of and appeared to benefit from supportive feedback and suggestions from the group. Recommended continued IOP tx to continue to improve mood stability, promote consistency of skill application and positive self-talk, and prevent decompensation. Narrative Note: []
--- NOTE | 2023-08-18 11:15 | BH.SGPN.GN ---
Behaviors/Verbalizations/Mental Status: []Client alert and oriented, casually dressed and fairly groomed. Eye contact good. Motor activity appropriate. Speech within normal limits. Affect congruent, mood depressed, anxious. Thoughts linear, logical, no signs of hallucinations or delusions. Client Response/Progress/Benefit: []Pt was engaged throughout AEB contributing to group discussion and self-reflection. Group finished processing cues to anger worksheet. Pt contributed as group brainstormed healthy coping skills for better managing anger which included: music, walking/exercise, taking a break, reflection, and journaling. Attentive in discussion about identifying personal anger cycle. Stated will work on journaling and temperature change as skills/strategies to prevent unhealthy anger response. Pt appeared to benefit from identifying different techniques to manage anger as well as gaining awareness of potential consequences of unmanaged anger. Pt to continue IOP to
== END 2023-08-18 23:59 ==
LOC: BHIOP 09:25
PROVIDERS: Visit Provider Psychiatry & Neurology Psychiatry
DX: F31.75 Bipolar disorder, in partial remission, most recent episode depressed (principal); F41.1 Generalized anxiety disorder; F12.90 Cannabis use, unspecified, uncomplicated; F10.90 Alcohol use, unspecified, uncomplicated; F11.90 Opioid use, unspecified, uncomplicated; F14.90 Cocaine use, unspecified, uncomplicated; Z79.899 Other long term (current) drug therapy
CPT/HCPCS: 90792; H2012; H2020; S9480; T1002; 90837

== ENCOUNTER 2023-08-21 08:12 | Outpatient (RCR) | payer MEDICAID, SELFPAY ==
--- NOTE | 2023-08-18 10:10 | BH.SGPN.GN ---
Behaviors/Verbalizations/Mental Status: [] Eye contact is good. Motor activity is appropriate. Appearance is casual. Speech is Appropriate. Mood is anxious. Affect is full. Thoughts are linear and logical. No evidence of psychosis Client Response/Progress/Benefit: [] Pt responded well to session AEB contributing to small group discussion, taking notes, and listening attentively to others. Participated during interactive discussion in which pt and peers defined anger and discussed the benefits of managed anger and anger as a secondary emotion. Group identified several emotions which can drive anger which included; pain, confusion, jealously, regret, loss, embarrassment, and exhaustion. Appeared to benefit from increased knowledge of the anger cycle as well as personal triggers. Will continue IOP to prevent decompensation, increase healthy coping skills, and stabilize mood. Narrative Note: []
[2023-08-19 02:40] VITALS: BP 114/77; PULSE 91
--- NOTE | 2023-08-21 09:05 | BH.SGPN.GN ---
Behaviors/Verbalizations/Mental Status: [] Eye contact is good. Motor activity is appropriate. Appearance is casual. Speech is Appropriate. Mood is anxious. Affect is congruent. Thoughts are linear and logical. No evidence of psychosis. Reviewed daily check in sheet and no reports of suicidal ideations or intent. Client Response/Progress/Benefit: [] Pt was an active participant in group discussion. Attentive. Daily symptom tracker notes 03/24 for anxiety. Emotion for today is tired. Pt states no caffeine today. She has considerable decrease her caffeine intake since starting IOP. She had been drinking multiple energy drinks in the AM. She noticed less anxiety and restlessness however admits she is somewhat sluggish as she had been drinking excessive caffeine for 15 years. Completing self-care. Feeling more hopeful recently. She combated an urge to smoke cannabis. Admits to continued isolation and other stressors. Progress noted. Will continue in IOP to prevent decompensation, stabilize mood, and increase healthy coping skills. Narrative Note: []
--- NOTE | 2023-08-21 10:15 | BH.SGPN.GN ---
Behaviors/Verbalizations/Mental Status: []Pt alert and oriented, casually dressed and groomed. Eye contact good. Motor activity appropriate. Speech within normal limits. Affect congruent, mood content, anxious. Thoughts linear, logical, no signs of hallucinations or delusions. Client Response/Progress/Benefit: [] Pt connected with topic of anxiety and participated throughout, providing input and taking notes. Participated throughout interactive discussion defining anxiety and identifying cognitive and physiological symptoms of anxiety. Group discussed how anxiety can prevent them from trying new things. Pt identified their physical signs of anxiety as: clenched jaw, hair twirling, and restlessness. Pt identified safety behaviors as: cancelling plans, isolating, and lashing out. Benefited from increased awareness and insight on anxiety and its impact. Pt will continue IOP tx to prevent decompensation, improve daily functioning, and increase self-care. Narrative Note: []
--- NOTE | 2023-08-21 11:15 | BH.SGPN.GN ---
Behaviors/Verbalizations/Mental Status: []Pt alert and oriented, neatly dressed and groomed. Eye contact good. Motor activity appropriate. Speech within normal limits. Affect congruent, mood euthymic. Thoughts linear, logical, no signs of hallucinations or delusions. Client Response/Progress/Benefit: [] Pt was an active participant AEB pt providing input and listening attentively to peers. Attentive during psychoeducation on mindfulness coping skills and their impact on reducing anxiety and improving overall mental health wellness. Group was able to identify self-soothing and mind-based coping skills which included: 5-senses, meditation, deep breathing, TIPP, thought challenging, and progressive muscle relaxation. Pt also participated with peers in practicing mindfulness skills in session. Pt would like to work on positive self-talk to help manage anxiety. Appeared to benefit from increasing repertoire of anxiety reduction skills. Pt will continue IOP tx to promote mood stability, gain healthy coping skills, and improve daily functioning. Narrative Note: []
--- NOTE | 2023-08-21 14:57 | BH.MDN_ITS ---
Multi-Disciplinary Note Note 60-min Individual: Time Started:: 12:05 Date: 08/21/23 Purpose of session/treatment goals addressed:: Purpose session was to address goals 1 and 2 from MTP. Eye Contact:: Good Motor Activity:: Restless Appearance:: Casual Speech:: Rapid Mood:: Euthymic Affect:: Full Thoughts:: Logical and No evidence of hallucinations/delusions noted Staff Interventions:: thought challenging, CBT techniques, strengths perspective, goal setting and taught coping skills Client Response:: On Monday she urged to smoke marijuana because she was bored. Client stated she utilized the crisis urges worksheet provided from previous session that helped her recognize the potential consequences of using again. Client she was able to stop herself from smoking and instead went hiking with one of her best friends to help distract her. Client stated she is proud of herself for being able to work through the urge because in the past she likely would have just smoked. Client reported in addition to feeling excited about refraining from returning to old negative coping skills she also chose to complete an online volunteer form for the [facility] [employer]. 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 Client stated choosing to herself out there for volunteering helped her feel like a sense of purpose. Client reported she does struggle sometimes with being on disability from the and recognizes lack of purpose and boredom tend to be triggers to engaging in alcohol or drug use. Client stated having some consistent maybe 2 times a week volunteering will give her a schedule and make her feel like she is contributing in someway. Client discussed activities that can help provide structure and engage in something that she enjoys is hiking/being in nature, playing video games, and being creative. Client stated she recognizes it would be helpful for her to get back into painting which is something she has not done in quite a while. Client encouraged to continue getting back involved in activities that she once enjoyed. Risks/Concerns:: Denies suicide ideation, plan, intention. Progress Toward Goals/Plan:: Progress noted with client reporting ability to refrain from reverting back to unhealthy coping skills like choosing to not smoke marijuana over the weekend. Client stated she is proud of herself for being able to do this because she recognizes how important her sobriety is in order to maintain mood stability. Progress can also be noted with client reporting having a sense of purpose since deciding volunteering would be a good move for her. Client to continue IOP to promote use of healthy coping skills, challenge distortions, and prevent decompensation. Time Stopped:: 13:00
--- NOTE | 2023-08-24 09:05 | BH.SGPN.GN ---
Behaviors/Verbalizations/Mental Status: [] Eye contact is good. Motor activity is appropriate. Appearance is casual. Speech is Appropriate. Mood is anxious. Affect is congruent. Thoughts are linear and logical. No evidence of psychosis. Reviewed daily check in sheet and no reports of suicidal ideations or intent. Client Response/Progress/Benefit: [] Pt was an active participant in group discussion. Emotion for today is hyped. She reports that she had caffeine this AM after going several days without and is definitely feeling the effects. Overall stopping caffeine has been beneficial for her mental health and functioning however she reports excessive fatigue in the AM. Group discussion on role of caffeine on anxiety, restlessness, irritability, and communication. She remains committed to decreased us however is hoping to find a way to ingest a small amount of caffeine in the AM to help. She is also setting self-care goals which are helping to decrease isolation and increase activity. Narrative Note: []
--- NOTE | 2023-08-24 10:10 | BH.SGPN.GN ---
Behaviors/Verbalizations/Mental Status: []Pt alert and oriented, casually dressed and groomed. Eye contact good. Motor activity appropriate. Speech within normal limits. Affect congruent, mood euthymic. Thoughts linear, logical, no signs of hallucinations or delusions. Client Response/Progress/Benefit: []Pt was an active participant in group discussion and activity. Attentive during psychoeducation. Along with peers, pt was able to identify barriers to taking action in their life. Identified several symptoms and stressors that pt feels are holding them back from progress such as avoidance, catastrophizing, and negative self-talk. Stated these things have kept pt from loving herself. Pt shared that she wants to begin addressing negative self-talk. Benefited from increased self-awareness of obstacles. Will continue IOP tx to improve mood management, promote consistent skill application, and further improve self-confidence. Narrative Note: []
--- NOTE | 2023-08-24 11:10 | BH.SGPN.GN ---
Behaviors/Verbalizations/Mental Status: []Pt alert and oriented, neatly dressed and groomed. Eye contact good. Motor activity appropriate. Speech within normal limits. Affect congruent, mood energetic. Thoughts linear, logical, no signs of hallucinations or delusions. Client Response/Progress/Benefit: []Pt responded well to session, taking notes and participating in worksheet discussion. Pt connected with the discussion on motion vs action steps and this helped pt learn how to set goals differently. Pt set a goal to reduce negative self-talk. Pt identified motion steps including hanging up a list of affirmations, scheduling self-talk while playing pokemon, and using the mirror as a reminder. Pt also made action steps which included plans to follow through with speaking nicely to herself multiple times in the morning. Appeared to benefit from identifying a small goal to benefit mental health. Will continue IOP tx to promote mood stability, combat negative thinking patterns, and improve daily functioning. Narrative Note: []
--- NOTE | 2023-08-29 09:05 | BH.SGPN.GN ---
Behaviors/Verbalizations/Mental Status: [] Eye contact is good. Motor activity is appropriate. Appearance is casual. Speech is Appropriate. Mood is anxious. Affect is congruent. Thoughts are linear and logical. No evidence of psychosis. Reviewed daily check in sheet and no reports of suicidal ideations or intent. Client Response/Progress/Benefit: [] Pt was an active participant in group discussions. Attentive. Able to identify mental health wins and healthy habits. Completing exposure goals. Negative thoughts, guilt, and embarrassment at times for ?not working? and being on disability. 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 Will avoid common shopping areas (i.e. [employer]) for fear of ?running into someone I know?. Increased self-care, acceptance, and reframing has been beneficial in the past few weeks. Tearful at times when discussing her struggles with mental health stating ? this just triggers some bad memories?. Progress noted. Benefited from group support, encouragement, and feedback from peers. Will continue in IOP to stabilize mood, improve functioning, and prevent decompensation. Narrative Note: []
--- NOTE | 2023-08-29 10:10 | BH.SGPN.GN ---
Behaviors/Verbalizations/Mental Status: [] Eye contact is good. Motor activity is appropriate. Appearance is casual. Speech is Appropriate. Mood is euthymic. Affect is congruent. Thoughts are linear and logical. No evidence of psychosis. Client Response/Progress/Benefit: [] Client responded well to session AEB sharing and listening attentively to others. Group identified types of social support (family, pets, professionals, spiritual, etc) and provided examples of benefits of having social support, including: decreased stress, increased self-esteem, encouragement, distraction, etc. Client shared she often allows unhealthy people into her network which leads to more harm to her. Client also participated in group discussion regarding the barriers to accessing support such as: lack of awareness, lack of trust, and low self-esteem. Client participated in experiential activity illustrating the impact communication, boundaries, and patience play in creating healthy support systems. Client appeared to benefit from increased knowledge of the benefits of social support and greater self-awareness. Will continue IOP to improve distress tolerance, continue practicing calming skills, and prevent decompensation.
--- NOTE | 2023-08-29 11:10 | BH.SGPN.GN ---
Behaviors/Verbalizations/Mental Status: [] Client alert and oriented, casually dressed and groomed. Eye contact good. Motor activity appropriate. Speech within normal limits. Affect congruent, mood euthymic. Thoughts linear, logical, no signs of hallucinations or delusions. Client Response/Progress/Benefit: [] Client was an active participant throughout AEB contributing to discussion, providing personal examples, and taking notes. Client processed emotions felt in the activity and how they coped in the moment. Client provided input during discussion on the types of support our supports can provide. Client able to identify current support system and barriers that get in the way of using supports by drawing out their own support net. Client reported after identifying what type of supports they receive; they gained awareness that they could benefit from more social supports. Client identified steps to achieve this by challenging himself to follow-through with making and keeping plans with friends. Client shared increasing social supports will help them have more of a sense of belonging. Client seemed to benefit from identifying the type of support client needs to work on improving. Client recommended to continue IOP tx to promote continued application mindfulness and emotion regulation skills and increase healthy boundary setting skills. Narrative Note: []
--- NOTE | 2023-08-29 14:57 | BH.MDN ---
Multi-Disciplinary Note Note 60-min Individual: Time Started:: 12:10 Date: 08/29/23 Purpose of session/treatment goals addressed:: Purpose of session was to address goals 1 and 2 from MTP. Eye Contact:: Good Motor Activity:: Restless Appearance:: Casual Speech:: Appropriate Mood:: Euthymic Affect:: Full Thoughts:: Linear, Logical and No evidence of hallucinations/delusions noted Staff Interventions:: thought challenging, CBT techniques, strengths perspective, goal setting and taught coping skills Client Response:: Client reported she is starting to realize that since ending her relationship her anxiety has significantly decreased. Client stated she thinks and further reflecting on the relationship there were parts of it that just were not healthy for her. Client reported she recognizes that she tended to feel like she was walking on eggshells with her ex because client did not want to have to engage in a several hour conversation over something that in client's perception was small. Client reported she recognizes continuing to focus on herself and refrain from engaging in romantic relationships during this time will significantly benefit her mental health. Client stated she plans to go on a self date this weekend to watch a movie on her own. Client reported she feels like her mood has been improved with not feeling as much impending doom about her future. Client stated she realizes she can be okay on her own which will allow herself to build her confidence and explore her own wants and needs. Client reported she did attend a virtual AA meeting but did not stay for the whole meeting because did not like the personality of the lead. Client reported she does tend to struggle with certain people at meetings which she believes is why she has not been going to any and portion. Client does recognize getting back into AA could be beneficial for her because it provides belonging and accountability. Client open to looking for a local meeting that she would be willing to attend in person just to give herself a chance to see if it something that could be an additional support for her. Risks/Concerns:: Denies suicide ideation, plan, intention. Future oriented. Progress Toward Goals/Plan:: Progress noted with client reporting improved mood and decreased anxiety. Client starting to work on relationship with herself which is something she has not done in quite a while. Client starting to realize the importance of feeling confident within herself and being okay with being on her own. Client shared she tends to absorb herself and to the other person during the relationship which has resulted in her not really knowing what she likes or what she wants in her life. Client starting turning in self-exploration and figuring out her own likes and needs. Client to continue IOP to promote use of healthy coping skills, challenging distortions, and prevent decompensation. Time Stopped:: 13:05
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
--- NOTE | 2023-08-30 10:15 | BH.SGPN.GN ---
Behaviors/Verbalizations/Mental Status: []Patient was alert and oriented, casually dressed and groomed. Eye contact was good, motor activity normal, speech within normal limits. Affect congruent, mood euthymic. Thoughts linear, logical, no signs of hallucinations or delusion Client Response/Progress/Benefit: [] Pt participated in the group discussions AEB providing input and taking notes. Attentive during psychoeducation Goal Setting. Participated during the discussion on common barriers which the group identified as: lack of motivation, not knowing where to start, not feeling good enough, and lack of support. Group also identified benefits sense of purpose, improved self-confidence, more motivation for other goals, and improved mental health.Pt reflected back on how accomplishing a goal helped pt give up my vices. Benefited from increased awareness of mental health benefits of goals as well as psychoeducation on SMART goal criteria. Will continue in IOP to improve mood stability, increase emotional regulation skills, and reduce negative thinking patterns. Narrative Note: []
--- NOTE | 2023-08-30 11:47 | PCM.BH.PN_ITS ---
Progress Note Progress Note: History of Present Illness/Interim History: The patient is a 33-year-old single female with a history of bipolar 1 disorder and anxiety who is seen in follow-up at the [facility] behavioral health IOP. I last saw the patient 3 weeks ago and at that time we decreased her Zoloft to help with her rapid cycling and increase her Lamictal to help with mood stabilization. The patient states that her mood is more stable and she feels less depressed than she did before. She feels much Colmer overall also. She has cut out energy drinks and decreased her caffeine use to less than 50 mg of caffeine once or twice a day now. She remains sober from marijuana also. Cording to the staf f she has been engaged in the program and consistent in attendance and making progress. She remains sober also from meth amphetamine and alcohol. She denies passive thoughts of , suicidal ideation, plan for suicide, homicidal ideation, hallucinations, delusions or symptoms of hypomania or quyen. Current Psychiatric Medications: [] Seroquel 150 mg p.o. nightly (x 1 year); Zoloft decreased to 50 mg 3 weeks ago; Lamictal increased to 100 mg p.o. nightly 2 weeks ago. Mental Status Examination: [] Patient is a 33-year-old slender female who appears normal for for stated age and has numerous tattoos bilaterally on her arms. She is ambulatory with a normal gait and casually dressed and groomed with good hygiene. She has no psychomotor agitation or retardation. She is cooperative and pleasant during the interview. Eye contact is good and speech is normal rate and rhythm and fluent with no pressure. Mood is euthymic. Affect is full and normal. Thought process is goal-directed and organized. Thought content: The patient is hopeful for the future. There is no evidence of passive thoughts of , suicidal ideation, homicidal ideation, hallucinations or delusions. Reality testing is intact. Intelligence is average. Judgment is intact. Insight is fair and improving. Impulsivity is moderate. Diagnoses: [] 1. Bipolar 1 disorder, most recent episode depression in full remission (F31.76) 2. Generalized anxiety disorder 3. Marijuana use disorder (sober x 1 month) 4. Alcohol use disorder (sober x 6 months) 5. 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 Primary support issues Plan: [] The patient will continue the IOP and behavioral health at [facility] as the structure, support, education and group therapy will hopefully prevent worsening of the patient's symptoms. She felt safe during the interview and if it anytime she does not feel safe she agrees to let us know or go to the emergency room. The risk, options, possible complications and side effects of the medications were again discussed with the patient and she understands and accepts these. The patient agrees to continue to use only small amounts of caffeine in the morning only. She agrees to stay sober from all drug use. She agrees to discontinue her Zoloft as we felt it it was increasing to her rapid cycling of moods. No other medication changes were made. She will continue to follow-up with her outpatient providers and I will see the patient in follow-up in 2 to 3 weeks or as needed.
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
--- NOTE | 2023-08-30 14:37 | BH.MTP_ITS ---
Treatment Plan Review Demographics Date of Admission:: 08/07/23 Date of Treatment Plan Review:: 08/30/23 Admitting Diagnoses:: 1. Bipolar 1 disorder, most recent episode depression in partial remission (F31.75) 2. Generalized anxiety disorder 3. Marijuana use disorder (sober x 1 week) 4. Alcohol use disorder (sober x 5 months) 5. Methamphetamine and opiate use disorder (sober x 5 years) in full remission Current Diagnoses:: 1. Bipolar 1 disorder, most recent episode depression in partial remission (F31.75) 2. Generalized anxiety disorder 3. Marijuana use disorder (sober x 1 week) 4. Alcohol use disorder (sober x 5 months) 5. Methamphetamine and opiate use disorder (sober x 5 years) in full remission Patient Status Patient's Response to Treatment:: Pt has responded well to treatment AEB consistent attendance, actively engaged in group sessions, and open/honest about symptoms and feelings in individual counseling. Status of Current Problems and Symptoms: Client reporting recent spike in anxious symptoms due to relationship trigger, but despite feeling increase in anxiety from this stressor she reports ability to use healthy coping skills to manage emotions in the moment. Client stated she was able to stop herself from having a panic attack which she recognizes isn't something she has often been able to do. Client also experienced urges to go back to smoking marijuana last weekend, but was able to use pros/cons crisis list to prevent relapse. Client starting to see the value of going to AA meetings in person again, but her anxious thoughts are continuing to keep her from attending. Client open to working on this and getting back to in person. Progress Problem #1: Problem Name:: Mood Instability - depression Status of Goals:: Obj 1 - met, ongoing work encouraged. Per DSM 5 cross- cutting measure pt's depression decreased by 67% compared to admission scores. Client is doing better with managing moods in the moment and reports anger has decreased significantly since ending relationship. Obj 2 - partially met. Client can identify negative thoughts, but needs continued work on independently challenging thoughts. Team Recommendations:: Team recommends continue current goals and object karl to reinforce healthy skill use, decrease anxious avoidance, and continue working on challenging negative/distorted thoughts independently. Problem #2: Problem Name:: Anxiety Status of Goals:: obj 1 - partially met, ongoing work encouraged. Client is able to identify calming skills like breathing, grounding, and stretching to help relieve anxious symptoms. Client has been reporting improvement with managing anxiety, but still notes some avoidance of certain situations. Per DSM 5 cross-cutting measure anxiety has decreased by 44%. Obj 2 - partially met, ongoing work encouraged. Client is able to identify anxiety triggers like boredom, being around others that are using, and extreme emotions. Client still working on building healthy skills to manage these triggers in the moment. Team Recommendations:: Team recommends continue current goals and objectives to reinforce healthy skill use, decrease anxious avoidance, and continue working on challenging negative/distorted thoughts independently.
--- NOTE | 2023-09-01 09:00 | BH.SGPN.GN ---
Behaviors/Verbalizations/Mental Status: [] Eye contact good. Motor activity appropriate. Speech within normal limits. Affect congruent, mood euthymic. Thoughts linear, logical, no signs of hallucinations or delusions. Reviewed client?s symptom tracker, denies SI, plan, or intent Client Response/Progress/Benefit: [] Pt was an active participant in group discussions. Attentive. Daily symptom tracker notes limited distress. Pt reports that she is very elated today. Reports that reached out to [facility] and is going to volunteer for them. Tearful stating these are happy tears. Reports limited purpose and meaning in her life due to mental health impacting her ability to work and function, however this volunteering opportunity will allow her to utilize her talents as well as help others. States that Monday was low and I was freaking out. She was struggling with negative thoughts however was able to utilize skills to regulate emotions. Progress noted. Benefited from group support, encouragement, and feedback. Will continue in IOP to prevent decompensation, malachi mood, increase healthy coping, and to improve functioning. Narrative Note: []
--- NOTE | 2023-09-01 10:10 | BH.SGPN.GN ---
Behaviors/Verbalizations/Mental Status: []Eye contact is good. Motor activity is appropriate. Appearance is neat. Speech is Appropriate. Mood is euthymic. Affect is congruent. Thoughts are linear and logical. No evidence of psychosis Client Response/Progress/Benefit: [] Pt was an active participant in group discussion and experiential activity. Attentive during psychoeducation on resilience. Participated during interactive discussion with peers on the definition of resilience. Able to relate experiential activity of group juggle to topics of resilience. Group worked together to identify what can impact one's ability to be resilient which included past experiences, trauma, toxic support system, lack of resources, and current mental/physical health state. Worked well with peers in small group in which they identified factors that contribute to building resilience. Pt?s group worked on the importance of keeping things in perspective. Benefited from increased awareness of resilience and the factors that contribute to building resilience. Will continue in IOP to promote mood stability, improve self-confidence, and reduce negative thinking patterns. Narrative Note: []
--- NOTE | 2023-09-01 11:10 | BH.SGPN.GN ---
Behaviors/Verbalizations/Mental Status: []Pt alert and oriented, causally dressed and appropriately groomed. Eye contact good. Motor activity appropriate. Speech within normal limits. Affect congruent, mood euthymic. Thoughts linear, logical, no signs of hallucinations or delusions. Client Response/Progress/Benefit: [] Pt responded well to session AEB completing the resilience worksheet provided. Pt participated in the discussion and worked cooperatively with group to identify strategies to enhance each of the components discussed. Pt reports belief they already use resilience traits of??self-awareness and maintain a hopeful outlook. Pt stated they would like to continue to develop resilience trait of ?nuturing a positive view of self? as pt recognizes she struggles with saying nice things about self. Pt seemed to benefit from discussing strategies for improving personal resilience and identifying resilience traits pt already possesses. Will continue IOP tx to improve emotion regulation, challenge distortions, and prevent decompensation.
--- NOTE | 2023-09-05 10:10 | BH.SGPN.GN ---
Behaviors/Verbalizations/Mental Status: [] Eye contact is good. Motor activity is appropriate. Appearance is casual. Speech is Appropriate. Mood is euthymic. Affect is congruent. Thoughts are linear and logical. No evidence of psychosis. Client Response/Progress/Benefit: []Pt engaged participant AEB listening to others, engaging in activity, and providing feedback at times. Attentive during psychoeducation and provided insight into obstacles that impede mental wellness. Pt shared with group current mental health reality and desired mental health reality. Stated she would like to be able to navigate stressors more effectively and feel more consistently stable. Identified barriers to desired reality include: poor communication, potential relapse, isolation, and lack of boundaries. Benefited from taking look at current mental health state and obstacles for progress. Pt to continue IOP tx to promote gains, continue use of healthy coping skills, and prevent decompensation.
--- NOTE | 2023-09-05 11:15 | BH.SGPN.GN ---
Behaviors/Verbalizations/Mental Status: [] Eye contact is good. Motor activity is appropriate. Appearance is casual. Speech is Appropriate. Mood is anxious and euthymic. Affect is congruent. Thoughts are linear and logical. No evidence of psychosis Client Response/Progress/Benefit: [] Pt was an active participant in group discussion and activity. Worked with group to identify strategies to help overcome barriers and obstacles to desired reality. Group developed strategies for the common barriers. Identified personal barriers to desired reality and choose one obstacle to work. Pt stated she wants to work on barrier of poor boundaries by practicing communicating her needs and how it feels when these needs are not respected. Pt seemed to benefit from increased repertoire of healthy coping skills/strategies to overcome common barriers to moving forward. Pt is to continue IOP to promote mood stability, increase healthy coping skill application, and prevent decompensation. Narrative Note: []
--- NOTE | 2023-09-06 09:01 | BH.SGPN.GN ---
Behaviors/Verbalizations/Mental Status: []Pt alert and oriented, casually dressed and groomed. Eye contact good. Motor activity appropriate. Speech within normal limits. Affect congruent. mood anxious. Thoughts linear, logical, no signs of hallucinations or delusions. Reviewed pt?s symptom tracker, no risk for suicidal ideation, plan, or intent. Client Response/Progress/Benefit: []Pt responded well to session, attentive and engaged. Pt stated she is feeling stressed this morning because she found out she has high cholesterol. Pt reported she was very upset by this when she first found out, but after using self-talk and processing it she knows it's something she can manage. Pt reported mental health positive was being able to manage emotions this morning and stop catastrophizing thoughts. Pt stated additional mental health positive as starting to distance self from a friend that is drinking alcohol again. Pt stated she's upset she can't be around this friend, but recognizes it won't be healthy for her own sobriety if she hangs out with her. Pt will continue IOP tx to promote use of healthy coping skills, challenge distorted thoughts, and prevent decompensation.
--- NOTE | 2023-09-06 10:15 | BH.SGPN.GN ---
Behaviors/Verbalizations/Mental Status: [] Eye contact is good. Motor activity is appropriate. Appearance is casual. Speech is Appropriate. Mood is euthymic. Affect is congruent. Thoughts are linear and logical. No evidence of psychosis. Client Response/Progress/Benefit: [] Client receptive to session AEB listening attentively to others and taking notes. Limited input however was attentive throughout psychoeducation on the cognitive triangle and maintenance cycles. Attentive during group discussion reviewing the impact of daily activities and behaviors in either reinforcing unhealthy maintenance cycles and depression or assisting in reducing symptoms (?down? vs ?up? activities). Client identified personal ?down? activities they engage in as: doom scrolling, isolation, ruminating, and crying in bathroom. Attentive during discussion on Common ?Up? activities client identified theirs to include: music, dancing, talking with friends, and playing with her cat. Appeared to benefit from increased awareness of current behaviors and impact these have on mental health. Will continue in IOP to stabilize mood, prevent decompensation, and improve functioning. Narrative Note: [] Narrative Note: []
--- NOTE | 2023-09-06 11:15 | BH.SGPN.GN ---
Behaviors/Verbalizations/Mental Status: []Eye contact is good. Motor activity is appropriate. Appearance is neat. Speech is Appropriate. Mood is euthymic. Affect is congruent. Thoughts are linear and logical. No evidence of psychosis. Client Response/Progress/Benefit: []Pt responded well to session, attentive and engaged in group discussions and activity. Group discussed values and the benefits that knowing one's values can have on one's mental health. Pt explored own values and identified personal top values. Pt stated a personally important value is friendships and social connections. Pt set a goal to attend one in person AA meeting in the next week. Pt also reported benefitting from the activity and the group encouragement today. Will continue in IOP to promote mood stability, combat distortions, and increase use of distress tolerance skills. Narrative Note: []
--- NOTE | 2023-09-06 14:58 | BH.MDN ---
Multi-Disciplinary Note Note 45-min Individual: Time Started:: 08:10 Date: 09/06/23 Purpose of session/treatment goals addressed:: Purpose of session was to address goals 1 and 2 from [facility]. Eye Contact:: Good Motor Activity:: Restless Appearance:: Casual Speech:: Appropriate Mood:: Anxious Affect:: Congruent Thoughts:: Linear, Logical, Racing and No evidence of hallucinations/delusions noted Staff Interventions:: thought challenging, CBT techniques, mindfulness skills, strengths perspective, goal setting and taught coping skills Client Response:: Client reported she is feeling anxious this morning because she found out she has high cholesterol. Client stated she started having racing thoughts yesterday after finding out that now she is going to . Client reported her step-dad from health issues and she is worried this will happen to her. Client stated she was spiraling last night and this morning with anxious thoughts. Client reported she was able to use calming skills like belly breathing to help prevent a panic attack. Client able to thought challenge with assistance from therapist. Client recognizes her doctor wasn't very concerned or they would have put her on a medication. Client stated she plans to focus on watching her diet by being more mindful what food she is eating. Client shared has decided she is going to keep her distance from one of her close friends since client knows this friend started to drink alcohol again. Client stated she knows it won't be good for her own sobriety. Client stated she did go on a hike with a friend she used to hang out with that is a sober friend. Client reported this friend goes to AA meetings as well. Client stated she is going to work on building sober friends network. Client stated will continue work on using calming skills, going to AA meetings, and spending time with sober friends. Risks/Concerns:: Denies suicidal ideation, plan, or intention to date. Progress Toward Goals/Plan:: Progress noted with client being able to using breathing and grounding tools to manage her anxious thoughts last night and this morning. Client has been consistently attending AA meetings, challenging distortions, and calming skills. Client reported increased anxiety last night and this morning after getting news about her health. Client is to continue IOP to increase consistent use of healthy coping skills, challenge negative/distorted thoughts, adn prevent decompensation. Time Stopped:: 08:55
--- NOTE | 2023-09-08 09:00 | BH.SGPN.GN ---
Behaviors/Verbalizations/Mental Status: [] Pt alert and oriented, neatly dressed and groomed. Eye contact good. Motor activity appropriate. Speech within normal limits. Affect congruent, mood euthymic. Thoughts linear, logical, no signs of hallucinations or delusions. Reviewed pt?s symptom tracker, no risk for suicidal ideation, plan, or intent 09/08/23 Client Response/Progress/Benefit: [] Pt responded well to session, attentive and engaged. Pt reports feeling elated this morning as pt shared I'm just so happy that things are working out. Pt reports wins today as going to AA meetings, using my anxiety to get things done instead of avoiding, and implementing healthy coping skills. Pt is doing well in IOP and working towards tx goals. Pt's stressor today is I'm stressed because I'm better so it feels like it won't last. Pt received positive feedback from the group on challenging this perspective. Pt appeared to benefit from reflecting on application of healthy coping skills and connecting with peers. Pt will continue IOP tx to promote mood stability, increase self-confidence, and further improve distress tolerance skills. Narrative Note: []
--- NOTE | 2023-09-08 10:05 | BH.SGPN.GN ---
Behaviors/Verbalizations/Mental Status: [] Client alert and oriented, casually dressed and groomed. Eye contact good. Motor activity appropriate. Speech within normal limits. Affect congruent, mood euthymic. Thoughts linear, logical, no signs of hallucinations or delusions. Client Response/Progress/Benefit: [] Client responded well to session, contributing to discussion and engaged during the activity. Attentive during discussion on the quote. Group identified the benefits of change which included: confidence better relationships, and improved mental health. Worked with the group to identify barriers to change, which included: anxiety and fear, confusion, external variables, and negative thinking. Client also reported reflected on past negative experiences can keep people from making changes. Client participated along with group in activity where they identified and discussed the emotions related to change. Benefited from increased awareness and understanding of emotions, benefits, and barriers related to change. Will continue IOP tx to increase overall functioning. Narrative Note: []
--- NOTE | 2023-09-08 11:05 | BH.SGPN.GN ---
Behaviors/Verbalizations/Mental Status: [] Client alert and oriented, casually dressed and groomed. Eye contact good. Motor activity appropriate. Speech within normal limits. Affect congruent, mood euthymic. Thoughts linear, logical, no signs of hallucinations or delusions. Client Response/Progress/Benefit: [] Client responded well to session, attentive throughout. Did well to process activity and work with group to relate the strategies used to overcome barriers in the activity to managing change in own life. Client identified a change they would like to make is adding heart healthy foods to diet and exercise more. Client identified currently being in preoperation stage for this particular change. Client said continuous effort and consistency in routine can help get her to next stage. Appeared to benefit from identifying a change they want and how to progress. Client will continue IOP tx to prevent decompensation, gain healthy coping skills, and improve daily functioning. Narrative Note: []
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
--- NOTE | 2023-09-11 10:10 | BH.SGPN.GN ---
Behaviors/Verbalizations/Mental Status: []Eye contact is good. Motor activity is appropriate. Appearance is casual. Speech is Appropriate. Mood is euthymic. Affect is congruent. Thoughts are linear and logical. No evidence of psychosis. Client Response/Progress/Benefit: [] Pt was an active participant in activity and taking notes during group discussion. Attentive during psychoeducation and interactive discussion on coping skills included why people use unhealthy skills. Group came up with list of unhealthy coping skills and pt identified personal ones as isolation and avoidance. Group discussed the effects of how unhealthy coping skills can impact mental health in a negative way. Participated during experiential activity and was able to relate the activity to group topic regarding the benefits of developing strong internal and external support system. Benefited from increased understanding of unhealthy coping skills and the need for developing healthy internal and external coping skills. Pt will continue IOP tx to maintain gains, continue building/utilizing healthy coping skills, maintain sobriety, and prevent decompensation.
--- NOTE | 2023-09-11 11:15 | BH.SGPN.GN ---
Behaviors/Verbalizations/Mental Status: []Pt alert and oriented, casually dressed and groomed. Eye contact good. Motor activity appropriate. Speech within normal limits. Affect congruent, mood content. Thoughts linear, logical, no signs of hallucinations or delusions. Client Response/Progress/Benefit: [] Pt responded well to session, taking notes and contributing when prompted. Group discussed the different categories of coping skills which included distraction, emotional release, grounding, self-love, and thought challenging. Pt participated in creating a coping skills ?menu? from the five categories of coping skills. Pt's coping skill menu included: exercise, music, funny videos, progressive muscle relaxation, accomplishment log, and decisional balance tool. Appeared to benefit from increasing repertoire of healthy coping skills. Will continue IOP to improve consistent skill application, challenge distortions, and prevent decompensation. Narrative Note: []
--- NOTE | 2023-09-13 09:01 | BH.SGPN.GN ---
Behaviors/Verbalizations/Mental Status: [] Eye contact is good. Motor activity is appropriate. Appearance is casual. Speech is Appropriate. Mood euthymic. Affect is congruent. Thoughts are linear and logical. No evidence of psychosis. Reviewed daily check in sheet and no reports of suicidal ideations or intent. Client Response/Progress/Benefit: [] Pt was an active participant in group discussions. Attentive. Client stated mental health positive as meeting her new outpatient counselor. Stated she really connected with the therapist and is hoping this is a good fit. Client reported additional win as immersed self back into AA meetings, going almost everyday. Client stated she is happy she has gotten back into meetings because she really was missing the social connections and community. Client reported current stressor as adjusting to having a life because she's not used to being active. Benefited from group support, encouragement, and feedback. Will continue in IOP to promote use of healthy coping skills, challenge negative/distorted thoughts, and prevent decompensation.
--- NOTE | 2023-09-13 10:10 | BH.SGPN.GN ---
Behaviors/Verbalizations/Mental Status: [] Eye contact is good. Motor activity is appropriate. Appearance is casual. Speech is Appropriate. Mood is anxious and euthymic. Affect is congruent. Thoughts are linear and logical. No evidence of psychosis Client Response/Progress/Benefit: [] Client was an active participant during interactive group discussions. Attentive during psychoeducation on the six types of boundaries (physical, emotional, intellectual, sexual, time, and material) AEB note-taking and input in group discussions. Along with peers contributed to interactive discussion on defining what a boundary is in mental health. Client along with peers identified challenges to setting boundaries which included; fear of conflict, being uncomfortable, believing they are being rude or mean, etc. Reports struggling with fear of rejection or feeling she doesn?t have a leg to stand on due to past behaviors. Client along with peers identified the benefits to setting boundaries such as healthier relationships, stronger sense of self, and improved confidence. Client benefited from increased awareness and insight on the importance/benefit to setting health boundaries. Will continue in IOP to prevent decompensation, increase healthy coping skills and mood stability, and improve functioning. Narrative Note: []
--- NOTE | 2023-09-13 11:15 | BH.SGPN.GN ---
Behaviors/Verbalizations/Mental Status: [] Eye contact is good. Motor activity is appropriate. Appearance is casual. Speech is Appropriate. Mood is euthymic. Affect is congruent. Thoughts are linear and logical. No evidence of psychosis. Client Response/Progress/Benefit: []Pt responded well to session AEB listening attentively to peers, providing some input, as well as taking notes throughout. Pt contributed throughout psychoeducation on different boundary setting styles. Participated in group discussion brainstorming various strategies for improving healthy boundary settings. Pt reported she wants to work on asking herself ?what does saying yes say no to? to help pt set more boundaries instead of responding with yes automatically. Seemed to benefit from increased awareness of how different boundary styles can impact mental health. Will continue IOP tx to increase healthy coping, improve view of self, and increase supports. Narrative Note: []
--- NOTE | 2023-09-13 14:59 | BH.MDN_ITS ---
Multi-Disciplinary Note Note 45-min Individual: Time Started:: 08:15 Date: 09/13/23 Purpose of session/treatment goals addressed:: Purpose of session was to address goals 1 and 2 from [facility]. Eye Contact:: Good Motor Activity:: Appropriate Appearance:: Casual Speech:: Appropriate Mood:: Euthymic Affect:: Full Thoughts:: Linear, Logical and No evidence of hallucinations/delusions noted Staff Interventions:: thought challenging, CBT techniques, discharge planning, strengths perspective, goal setting and other (started maintenance plan) Client Response:: Client reported she chose to address her best friend's alcohol use, expressing concern on how it is impacting him. Client stated initially she wanted to just stop talking to him, but used opposite action and did the anxious thing. Client reported she started to recognize how his alcohol use could threaten her own sobriety. Client stated he responded really well to her reaching out and expressing her concerns. Client stated additional positive throughout the week is getting back to attending AA meetings in person almost everyday this week. Client reported she has also volunteered to start leading some of the meetings. Client reported she has really missed the community AA provides for her and her negative thoughts were challenged that she wouldn't like anyone if she went but realizes she missed a lot of the people. Client expressed anxiety about discharging from [facility] next week. Client stated she's mostly afraid she won't be able to maintain the progress she's made since starting IOP. Client open to working on provided maintenance plan handout and will review next week at last session. Risks/Concerns:: Denies suicidal ideation, plan, or intention to date. Progress Toward Goals/Plan:: Client reporting decreased depression with improved daily functioning. Client stated she is leaving her house daily and is reengaging in AA meetings. Client also reports significant decline in her anxious symptoms. Client was able to face anxious situation recently by addressing with her best friend some concerns she has, which she stated in the past she would've just stopped talking to her friend. Plan is for client to discharge from [facility] next week. Client to continue IOP to promote use of healthy coping skills, challenge distortions, and prevent decompensation. Time Stopped:: 08:59
--- NOTE | 2023-09-15 09:05 | BH.SGPN.GN ---
Behaviors/Verbalizations/Mental Status: []Pt alert and oriented, neatly dressed and groomed. Eye contact good. Motor activity appropriate. Speech within normal limits. Affect congruent. mood euthymic. Thoughts linear, logical, no signs of hallucinations or delusions. Reviewed pt?s symptom tracker, no risk for suicidal ideation, plan, or intent 09/15/23 Client Response/Progress/Benefit: []Pt responded well to session, attentive and engaged. Pt reports feeling tickled this morning as pt was able to change her perspective and mood when she got to [facility]. Pt stated wins today as being consistent with her coping skills, going to AA meetings, and volunteering to chair some AA meetings. Pt's stressor is worry about maintaining her progress when she graduates from [employer]. Pt receptive to thought challenging and feedback to encourage self-assurance. Pt appeared to benefit from reflecting on application of coping skills and connecting with peers. Pt will continue IOP tx to promote gains, increase self-confidence, and further improve mood stability. Narrative Note: []
--- NOTE | 2023-09-15 10:15 | BH.SGPN.GN ---
Behaviors/Verbalizations/Mental Status: [] Eye contact is good. Motor activity is appropriate. Appearance is casual. Speech is Appropriate. Mood is content, euthymic. Affect is congruent. Thoughts are linear and logical. No evidence of psychosis. Client Response/Progress/Benefit: [] Attentive and engaged throughout the group discussions. Attentive during psychoeducation on the 4 communication styles (Passive, Passive-Aggressive, Aggressive, and Assertive) and the obstacles to effective communication. Attentive during interactive discussion on the benefits of communicating effectively, as well as the benefits and disadvantages to the different communication styles. Reports connecting most with passive and passive-aggressive styles within her relationships, often resulting in issues not really being addressed. Benefited from increased understanding of communication styles and how these can impact effective communication. Will continue in IOP to prevent decompensation, increase consistent application of healthy coping, and improve functioning. Narrative Note: []
--- NOTE | 2023-09-15 11:15 | BH.SGPN.GN ---
Behaviors/Verbalizations/Mental Status: []Pt alert and oriented, casually dressed. Eye contact good. Motor activity appropriate. Speech within normal limits. Affect congruent, mood content, anxious. Thoughts linear, logical, no signs of hallucinations or delusions. Client Response/Progress/Benefit: [] Pt responded well to session AEB Pt listening attentively to others and providing input during group discussion on the pay offs and costs of the different communication styles. Pt able to connect how current communication style impacts mental health. Connected with peers? comments about importance of using assertive communication. Pt did well being assertive in the group activity and worked with group to identify potential skills for improving communication skills. Pt seemed to benefit from increasing awareness of healthy strategies to improve communication and identified wanting to work on improving ability to better use mindfulness when expressing herself and prevent emotion dysregulation. Will continue IOP tx to prevent decompensation, maintain mood stability, and improve daily functioning. Narrative Note: []
== END 2023-09-17 23:59 ==
LOC: BHIOP 08:12
PROVIDERS: Visit Provider Psychiatry & Neurology Psychiatry
DX: F31.76 Bipolar disorder, in full remission, most recent episode depressed (principal); F41.1 Generalized anxiety disorder; F12.90 Cannabis use, unspecified, uncomplicated; F10.91 Alcohol use, unspecified, in remission; F11.91 Opioid use, unspecified, in remission; Z79.899 Other long term (current) drug therapy
CPT/HCPCS: H2012; H2020; S9480; 90832; 90834; 90837

== ENCOUNTER 2023-09-18 07:13 | Outpatient (RCR) | payer MEDICAID, SELFPAY ==
--- NOTE | 2023-09-05 09:05 | BH.SGPN.GN ---
Behaviors/Verbalizations/Mental Status: [] Eye contact is good. Motor activity is appropriate. Appearance is casual. Speech is Appropriate. Mood is euthymic. Affect is full. Thoughts are linear and logical. No evidence of psychosis. Reviewed daily check in sheet and no reports of suicidal ideations or intent. Client Response/Progress/Benefit: [] Pt was an active participant in group discussion. Attentive. Emotion for today is ?happy and irritated?. She reports side effects from stopping Zoloft which include ?zapping? which pt reports is normal and peers agreed. Despite being expected she reports this has impacted her mood and led to frustration. Reports urge to drink with cope despite being sober for an extended period of time. Proud of herself for utilizing skills and reframing to combat urges and side effects decreased. Benefited from group support, encouragement, and feedback. Will continue in IOP to prevent decompensation, stabilize mood, and improve functioning. Narrative Note: []
[2023-09-18 00:47] VITALS: BP 114/77; PULSE 91
--- NOTE | 2023-09-18 09:00 | BH.SGPN.GN ---
Behaviors/Verbalizations/Mental Status: [] Eye contact is good. Motor activity is appropriate. Appearance is casual. Speech is Appropriate. Mood is irritable. Affect is congruent. Thoughts are linear and logical. No evidence of psychosis. Reviewed daily check in sheet and no reports of suicidal ideations or intent. Client Response/Progress/Benefit: [] Pt was an active participant in group discussion. Attentive. Shared with the group that she is set to discharge from [facility] this week. She is fearful of regression without continued support of [facility]. Worried she will decompensate emotionally which will lead to relapse. Able to reframe stating that she is linked with sober support, will be in [facility] aftercare, and is linked with therapist. Peers pointed out her improved ability to challenge and reframe thoughts. Progress noted. Benefited from group support, encouragement, and feedback. Will continue in [facility] to prevent decompensation, stabilize mood, and improve functioning. Narrative Note: []
--- NOTE | 2023-09-18 10:10 | BH.SGPN.GN ---
Behaviors/Verbalizations/Mental Status: [] Pt alert and oriented, appropriate grooming/appearance. Eye contact good. Motor activity appropriate. Speech within normal limits. Affect congruent, mood euthymic. Thoughts linear, logical, no signs of hallucinations or delusions. Client Response/Progress/Benefit: [] Pt was an active participant in group discussions. Attentive during psychoeducation. Contributed during interactive discussions in which peers attempted to define crisis. Group identified examples of potential crisis. Group also worked together to identify unhealthy responses to crisis which included lashing out, isolation, self-harm, substance abuse, and sleep disturbances. Pt identified personal warning signs apathy, stopping medication, and increased impulsiveness. Benefited from increased understanding of crisis and awareness of personal responses to crisis. Pt will continue IOP tx to increasing healthy coping skills and prevent decompensation. Narrative Note: []
--- NOTE | 2023-09-18 15:33 | BH.MDN ---
Multi-Disciplinary Note Note 45-min Individual: Time Started:: 11:15 Date: 09/18/23 Purpose of session/treatment goals addressed:: Purpose of session was to address goals 1 and 2 from [facility] and start discharge planning. Eye Contact:: Good Motor Activity:: Restless Appearance:: Casual Speech:: Appropriate Mood:: Euthymic and Anxious Affect:: Congruent Thoughts:: Linear, Logical and No evidence of hallucinations/delusions noted Staff Interventions:: thought challenging, CBT techniques, discharge planning, strengths perspective and goal setting Client Response:: Client responded well to session as evidenced by engagement in discussion. Client stated she is feeling anxious about discharging from the program this week. Client reported she recognizes she made significant progress since starting IOP but has that anxiety she will be able to maintain the gains she has made. Therapist discussed the importance of creating a maintenance plan with client so that she can identify the steps and skills that would help her maintain the gains she has made since starting IOP. Therapist reviewed maintenance plan worksheet in which client is to start to think about and complete plan of identifying triggers, warning signs, self-care activities, and healthy coping skills. Therapist also included additional questions for client to reflect on for her maintenance plan. Client stated she has been consistently attending AA meetings, has been started outpatient therapy and reports enjoying her therapist, and utilizing skills learned more consistently to help manage anxiety throughout the day. Client agreeable to keep start reflection in writing out responses for provided maintenance plan. Risks/Concerns:: Denies suicidal ideation, plan, intention. Future oriented. Progress Toward Goals/Plan:: Progress note with client reporting continued improved mood, decreased anxiety, improve daily functioning, attending AA meetings, starting to lead AA meetings, building sober support network, decreased isolation, and reports maintenance of sobriety. Client expresses anxiety about discharge from IOP this week because of fear she will be able to maintain the gains she has made. Plan is for client to start reflecting and filling out provided maintenance plan to help build confidence for client that she can maintain when she discharges from IOP on Monday. Client is established with medication management and outpatient counseling. Client to continue IOP to maintain gains, complete maintenance plan, and prevent decompensation. Time Stopped:: 12:00
--- NOTE | 2023-09-20 09:05 | BH.SGPN.GN ---
Behaviors/Verbalizations/Mental Status: [] Eye contact is good. Motor activity is appropriate. Appearance is casual. Speech is Appropriate. Mood is euthymic. Affect is full. Thoughts are linear and logical. No evidence of psychosis. Reviewed daily check in sheet and no reports of suicidal ideations or intent. Client Response/Progress/Benefit: [] Pt was an active participant in group discussions. Attentive. Emotion for today is ?even-keeled?. Shared that she is set to discharge from [facility] later this week. Feels confident and is excited about next steps. Believes IOP was helpful as she is more engaged with life on daily basis, is sober from cannabis, is regularly attending recovery groups, her mood is more stable, and she is more hopeful. Progress noted. Benefited from group support, encouragement, and feedback. Will continue in [facility] to maintain progress. Narrative Note: []
--- NOTE | 2023-09-20 10:10 | BH.SGPN.GN ---
Behaviors/Verbalizations/Mental Status: [] Eye contact is good. Motor activity is appropriate. Appearance is casual. Speech is Appropriate. Mood is euthymic. Affect is congruent. Thoughts are linear and logical. No evidence of psychosis. Client Response/Progress/Benefit: [] Pt receptive to session AEB contributing to small group discussion, as well as listening attentively to others, and taking notes. Worked with group to brainstorm the positive and negative aspects of stress on physical and mental health as well as the impact of distress on performance, relationships, and mental health. Pt shared her top stressors to be: maintaining sobriety, health, taking care of her cats, and friends/family. Shared when feeling overwhelmed with stress she tends to lash out, becomes paranoid, and stops doing self-care activities. Benefited from increased awareness of positive and negative stress as well as how stress impact individuals. Will continue in IOP to promote use of healthy coping skills, challenge distortions, and prevent decompensation.
--- NOTE | 2023-09-20 11:10 | BH.SGPN.GN ---
Behaviors/Verbalizations/Mental Status: []Pt alert and oriented, casually dressed and groomed. Eye contact good. Motor activity appropriate. Speech within normal limits. Affect congruent, mood anxious and content Thoughts linear, logical, no signs of hallucinations or delusions. Client Response/Progress/Benefit: [] Pt was an attentive and active participant in group discussions and experiential activity, doing well to regulate their emotions throughout the activity and work with peers. Attentive during psychoeducation on the 4 A's (Avoid, adapt, alter, accept) of coping with stress. Shared that they would benefit most from altering her responses and avoiding unnecessary stressors when communicating with her mother. Was able to identify the connection between the experiential activity and utilization of stress management skills. Benefited from increased awareness of stress management strategies. Pt will continue IOP tx to prevent decompensation and maintain mood stability. Narrative Note: []
--- NOTE | 2023-09-22 10:10 | BH.SGPN.GN ---
Behaviors/Verbalizations/Mental Status: []Eye contact is good. Motor activity is appropriate. Appearance is casual. Speech is Appropriate. Mood is euthymic. Affect is congruent. Thoughts are linear and logical. No evidence of psychosis. Client Response/Progress/Benefit: [] Pt was an engaged participant AEB listening attentively to others, taking notes, and providing feedback in small group discussions. Attentive during psychoeducation AEB by note taking and providing some input. Pt worked along with peers in small groups to define inappropriate guilt and appropriate guilt. Interactive discussion on examples of both inappropriate and appropriate guilt. Pt able to connect impact inappropriate guilt can have on MH. Pt gave an example of having inappropriate guilt about feeling guilt over having to force her cat to take medications daily for the cat's anxiety. Benefited from increased awareness of guilt and the differences between appropriate and inappropriate guilt. Will continue in IOP to promote gains, further reduce negative thinking patterns, and prevent decompensation.
--- NOTE | 2023-09-22 10:32 | BH.DS ---
Discharge Summary Demographics Date of Admission:: 08/07/23 Discharge Date: 09/22/23 Presenting Problems at Admission:: The patient is a 33-year-old single female with a history of bipolar 1 disorder and anxiety who was referred by her partner to the [facility] behavioral health IOP for erratic moods, irritability and anger outbursts. The patient also has a history of methamphetamine/opiate use disorder (sober x 5 years) and alcohol use disorder (sober x 4 months). The patient was on disability from [employer] for 12 years for mental health issues. Patient states that since stopping marijuana 7 days ago she no longer feels as depressed and feels that she could be getting a little hypomanic but is uncertain. Energy is somewhat increased overall but this could be due to energy drinks she says. Concentration is a little decreased. She denies passive thoughts of , suicidal ideation, plan for suicide, homicidal ideation. Discharge Diagnoses:: 1. Bipolar 1 disorder, most recent episode depression in partial remission (F31.75) 2. Generalized anxiety disorder 3. Marijuana use disorder (sober x 1 week) 4. Alcohol use disorder (sober x 5 months) 5. 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 Treatment Progress During Treatment & Response: Progress noted AEB DSM 5 cross-cutting measure at discharge. Client's scores indicate a 100% decrease in depression, 78% decrease in anxiety, and an overall 95% decrease in overall mental health symptoms when compared to admission scores. 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 Pt responded well to treatment AEB consistent attendance, active participation in group sessions, and engagement in individual therapy. Issues Still to be Addressed:: Client could benefit from continued work on managing difficulty emotions, sticking to aftercare plan, challenging negative thoughts, and reinforcement of attending weekly AA meetings. Discharge Recommendations/Instructions:: Client is established with outpatient counselor through [facility] and has next appointment on 09/28/23. Client will continue with outpatient geriatric psychiatrist for medication management, sees provider monthly. Discharge Handout
--- NOTE | 2023-09-22 11:15 | BH.SGPN.GN ---
Behaviors/Verbalizations/Mental Status: []Pt alert and oriented, casually dressed and groomed. Eye contact poor. Motor activity appropriate. Speech within normal limits. Affect congruent, mood anxious and excited. Thoughts linear, logical, no signs of hallucinations or delusions. Client Response/Progress/Benefit: []Pt engaged participant AEB listening attentively to others and providing input throughout group. Pt worked within their small group to identify strategies to manage inappropriate guilt. Pt worked with group to identify strategies for both appropriate and inappropriate guilt. Pt selected?challenging emotional reasoning when she begins to feel inappropriate guilt over boundaries. Pt seemed to benefit from learning about strategies to manage appropriate and inappropriate guilt. Pt will discharge from IOP tx as pt has accomplished her tx goals and no longer meets criteria for IOP level of care. Narrative Note: []
--- NOTE | 2023-09-22 15:51 | BH.MDN ---
Multi-Disciplinary Note Note 45-min Individual: Time Started:: 09:00 Date: 09/22/23 Purpose of session/treatment goals addressed:: Purpose of session was to identify treatment progress, complete maintenance plan, and solidify aftercare plans. Eye Contact:: Good Motor Activity:: Appropriate Appearance:: Casual Speech:: Appropriate Mood:: Euthymic Affect:: Full Thoughts:: Linear, Logical and No evidence of hallucinations/delusions noted Staff Interventions:: CBT techniques, discharge planning, strengths perspective, reviewed DSM-5 and other (Complete maintenance plan) Client Response:: Client reported feeling depressed weight today to discharge from [facility] because she is going to miss the program. Client stated she has made significant treatment progress since starting [facility] with decreased anxiety, decreased depression, decreased isolation, increased socialization, attending AA meetings consistently, volunteering to lead AA meetings, and improved outlook on life. Client reported she is been able to get things done and also started to get back into being creative which is something she has not done in years. Client reports she started to work on her maintenance plan but has some areas that she needs to continue to fill out together in session. Client worked with therapist to identify triggers, warning signs, self-care activities, healthy coping skills, and identify areas would like to work on with new outpatient therapist. Client also able to identify what her behaviors and mood look like when she is stable versus when she needs to ask for help. Client stated she is feeling more confident that she can maintain the gains she has made. Risks/Concerns:: Denies suicide ideation, plan, and intention. Future oriented. Progress Toward Goals/Plan:: Progress noted AEB DSM 5 cross-cutting measure at discharge. Client's scores indicate a 100% decrease in depression, 78% decrease in anxiety, and an overall 95% decrease in overall mental health symptoms when compared to admission scores. 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 Plan is for client to discharge from [facility] today. Client is established with outpatient counselor through [facility] and has next appointment on 09/28/23. Client will continue with outpatient eating disorder psychologist for medication management, sees provider monthly. [facility]23. Time Stopped:: 09:40
== END 2023-09-22 13:30 | disposition home or self-care (01) ==
LOC: BHIOP 07:13
PROVIDERS: Visit Provider Psychiatry & Neurology Psychiatry
DX: F31.75 Bipolar disorder, in partial remission, most recent episode depressed (principal); F41.1 Generalized anxiety disorder; F12.90 Cannabis use, unspecified, uncomplicated; F10.91 Alcohol use, unspecified, in remission; F15.91 Other stimulant use, unspecified, in remission; Z79.899 Other long term (current) drug therapy
CPT/HCPCS: H2012; H2020; S9480; 90834

== ENCOUNTER 2023-09-28 13:50 | Outpatient (RCR) | payer MEDICAID, SELFPAY ==
--- NOTE | 2023-09-28 14:00 | BH.SGPN.GN ---
Behaviors/Verbalizations/Mental Status: []Pt alert and oriented, neatly dressed and groomed. Eye contact good. Motor activity appropriate. Speech within normal limits. Affect congruent, mood euthymic. Thoughts linear, logical, no signs of hallucinations or delusions. Client Response/Progress/Benefit: []Pt responded well to session, attentive and engaged. Receptive to feedback. Pt reports they have been following up with her AA community and medications to maintain her mental wellness. Pt reports she has been doing really well which is both good and something for pt to monitor as pt tends to over do it. Hedis Analyst and group offered support and feedback on prioritizing self-care which pt appeared to benefit from. Pt shared using skills like deep breathing, opposite action, and reaching out to her sponsor. Pt responded well to discussion of problem-solving including the strategies for problem-solving. Pt participated in the group activity and helped peers find a way to overcome the challenge obstacles. Pt was encouraged to take the problem-solving strategies and apply them outside of IOP aftercare. Pt will continue IOP aftercare to promote mood stability, reinforce healthy coping skills, and promote gains. Narrative Note: []
--- NOTE | 2023-09-28 14:00 | BH.COMM ---
Communication Note Communication with Client Communication Note: Patient completed IOP and presents today to start relapse prevention group which meets once weekly (1.5 hours) for 8 weeks. Case discussed with Dr. Taylor with plan to admit with dx of F31.15
--- NOTE | 2023-09-28 14:59 | BH.MTP ---
[facility] Treatment Plan Patient Information Program Physician:: Dr. 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 Objectives Objective #1: Stated Objective: Client will continue to consistently apply healthy coping skills to maintain progress made in IOP tx. Interventions: Through group therapy, client will review warning signs and triggers as well as healthy coping skills learned in IOP tx to successfully maintain gains while transitioning into outpatient therapy. Discharge Criteria: Client will have accomplished this goal when client's score on the DSM-5 cross-cutting measure has maintained or reduced over a 8 week period. Target Date: 11/23/23 Review Date: 10/26/23 Status: open Objective #2: Stated Objective: Client will learn and utilize 2-3 maintenance strategies to prevent decompensation from original IOP DSM-5 scores. Interventions: Through group therapy, client will be provided with education on healthy maintenance behaviors, relapse prevention techniques, and healthy coping strategies. Discharge Criteria: Client will have accomplished this goal when can report using at least 2 maintenance skills to prevent decompensation compared to original IOP DSM-5 scores Target Date: 11/23/23 Review Date: 10/26/23 Status: open
== END 2023-10-16 08:56 | disposition home or self-care (01) ==
LOC: BHOG 13:50
PROVIDERS: Referring Provider Psychiatry & Neurology Psychiatry; Visit Provider Psychiatry & Neurology Psychiatry
DX: F31.75 Bipolar disorder, in partial remission, most recent episode depressed (principal); F41.1 Generalized anxiety disorder; F10.90 Alcohol use, unspecified, uncomplicated; F12.90 Cannabis use, unspecified, uncomplicated; F11.91 Opioid use, unspecified, in remission; F15.21 Other stimulant dependence, in remission
CPT/HCPCS: 90853

== ENCOUNTER 2023-11-25 02:49 | Emergency (ER) | payer MEDICAID, SELFPAY ==
[2023-11-25 02:50] VITALS: BP 116/79; PULSE 78; RESP 18; TEMP 36.4; O2SAT 97; BMI 19.2
--- NOTE | 2023-11-25 02:59 | CT_ITS ---
INDICATION: Pain EXAMINATION: CT Abdomen And Pelvis W/O Contrast Injection TECHNIQUE: Helically acquired images were obtained of the abdomen and pelvis with sagittal and coronal reconstructed images. Individualized dose optimization techniques were used for this CT. IV contrast dosage and agent: None. Oral contrast: None. COMPARISON: 01/13/2019 CT. FINDINGS: VESSELS: No abdominal aortic aneurysm. LIVER: No intrahepatic or extrahepatic biliary duct dilation. GALLBLADDER: No calcified stones. No evidence of cholecystitis. PANCREAS: No evidence of a mass. No evidence of pancreatitis. SPLEEN: Normal. ADRENAL GLANDS: Normal. KIDNEYS AND URETERS: No urinary tract stone. No hydronephrosis or hydroureter. No significant asymmetric perinephric stranding. URINARY BLADDER: Unremarkable. BOWEL: No evidence of diverticulosis or diverticulitis. Appendix appears normal. No evidence of bowel obstruction. Fluid-filled nondilated small bowel. REPRODUCTIVE ORGANS: Unremarkable. PERITONEUM: No intraabdominal free fluid or free air. LYMPH NODES: No pathologically enlarged mesenteric or retroperitoneal lymph nodes. ABDOMINAL WALL: No abdominal or pelvic wall hernia. BONES: No acute abnormality. LOWER CHEST: Visualized lung bases are unremarkable. CT/Abdomen/Pelvis without Cont IMPRESSION: No acute abnormality. Electronically Signed: Bart Barrios DO at 4:46 EDT ,
--- NOTE | 2023-11-25 03:00 | EDS_ITS ---
HPI HPI - GI History of Present Illness Chief Complaint: Abd Pain Detail of Chief Complaint: Abdominal pain Informant: patient Narrative Narrative: Patient presents to the emergency department complaint of abdominal pain that started few hours ago initially was more epigastric and then moved to the right lower quadrant. Patient thinks it could be a kidney stone because she has had kidney stones before. She denies urinary symptoms. She denies fevers. Had some nausea. She has had some loose stools. Pain was an 8 out of 10 but she took some Tylenol and some Pepto and now its down to like a 3 out of 10. She does not want any narcotics for pain as she has a remote history of drug abuse including methamphetamines and opiates more than 8 years ago. [facility] Medical History (Updated 11/25/23 @ 04:[address] Deena Mistry, ) Methamphetamine use disorder, mild, in sustained remission Alcohol use disorder Cannabis use disorder Generalized anxiety disorder Bipolar 1 disorder, depressed, partial remission Home Medications ?Medication ?Instructions ?Recorded ?Last Taken ?Type quetiapine 100 mg tablet (Seroquel) 150 mg PO DAILY 08/09/23 Unknown History lamotrigine 100 mg tablet 100 mg PO DAILY 30 days #30 tabs 08/30/23 Unknown Rx (Lamictal) Allergy/AdvReac Type Severity Reaction Status Date / Time latex Allergy Hives Verified 11/25/23 02:54 Opioids - Morphine Analogues AdvReac Other Verified 11/25/23 02:54 Social History Smoking Status: Current every day smoker tobacco type: e-cigarettes ROS ROS ED Review of Systems ROS Unobtainable: other Constitutional Constitutional ED: Reports lethargy; Denies chills, fever(s), sweats or weight loss Eyes Eyes: Denies blurry vision, change in vision or diplopia ENT ENT ED: Denies rhinorrhea or sore throat Cardiovascular Cardiovascular: Denies chest pain, orthopnea or racing heartbeat Respiratory/Chest Respiratory/Chest: Denies cough, dyspnea, dyspnea on exertion, orthopnea or sputum Gastrointestinal Gastrointestinal: Reports abdominal pain, diarrhea and nausea; Denies vomiting Genitourinary Genitourinary ED: Denies dysuria, hematuria or urinary frequency Musculoskeletal Musculoskeletal: Denies arthralgias, back pain, myalgias or neck pain Integumentary Denies abscess, Abrasions or rash Neurologic Neurologic: Denies headache(s) or weakness Psychiatric Psychiatric: Denies anxiety, depression or suicidal thoughts Endocrine Endocrinology: Denies polydipsia, polyphagia or polyuria Hematologic/Lymphatic Hematologic/Lymphatic: Denies easy bleeding, easy bruising or lymphadenopathy Allergic/Immunologic Allergic/Immunologic ED: Denies mouth swelling, tongue swelling or urticaria EXAM Physical Exam Const Vital Signs: 11/25/23 02:50 Temperature 97.5 F L Temperature Source Axillary Pulse Rate 78 Respiratory Rate 18 Blood Pressure 116/79 Blood Pressure Mean 91 Pulse Ox 97 Oxygen Delivery Method Room Air Positive well nourished and well developed General Appearance ED: well developed and NAD HEENT Reports TM's clear and moist mucous membranes normocephalic and atraumatic; Negative for trauma or tenderness Tympanic Membrane ED: Yes TM's clear Eyes PERRL and EOMs intact bilaterally General Eye ED: Negative for pale conjunctiva or scleral icterus Neck no lymphadenopathy, supple and no JVD General: Negative for tenderness Chest Wall inspection of chest normal and palpation of chest normal Chest: Negative for tenderness Resp normal respiratory effort and clear to auscultation bilaterally Effort and Inspection: Negative for respiratory distress or pain with movement Auscultation: Negative for rhonchi, wheezes or diminished lung sounds Cardio regular rate, regular rhythm, S1 normal heart sound, S2 normal heart sound and no murmurs Peripheral Pulses: pulses 2+ throughout GI normal to inspection, nondistended, normoactive bowel sounds, soft to palpation, non-distended and no masses GI Narrative: Mild discomfort to the right upper quadrant and epigastric region. There is no rebound, rigidity, or peritoneal signs. No mass palpated. No CVA tenderness on exam. Back/Spine no CVA tenderness and no thoracic nor lumbar tenderness Extremity normal to inspection General Extremety ED: Negative for edema General Extremity: Negative for edema Neuro oriented x3, CN's II-XII intact bilaterally, no sensory deficits noted and gait normal Sensorium / Orientation: awake, alert, oriented to person, oriented to place and oriented to time Motor Exam: strength 5/5 throughout and strength abnormal Psych mental status grossly normal Skin no rashes or lesions noted and no wounds MDM MDM MDM Narrative Medical decision making narrative: Patient presents with abdominal pain and some diarrhea. She has had some nausea. Clinically looks well. She is only had pain for a few hours prior arrival in the emergency department. She is worried about a kidney stone. In the differential would be kidney stone versus UTI versus acute appendicitis or other acute intra-abdominal process. IV line established. CBC with differential obtained showed white count 11.1 with hemoglobin 14 and platelet count of 431. Chemistries unremarkable. LFTs were normal. hCG was negative. Urinalysis normal. CT scan of the abdomen pelvis showed no acute disease process. She had some fluid-filled small bowel. Given the history of the diar more and findings on CT suspect possibility of an early gastroenteritis. On repeat examination at 4:50 AM she is not having any pain. Will discharge to home. Advised to push fluids. She is to take Imodium if she develops diarrhea. To return if worsening pain, dehydration, or condition worsen anyway Lab Data Attestation: I reviewed the patient's lab results. Labs: Laboratory Results - last 24 hr 11/25/23 11/25/23 03:00 03:03 WBC 11.1 H RBC 4.58 Hgb 14.0 Hct 41.3 MCV 90.2 MCH 30.6 MCHC 33.9 RDW Std Deviation 40.8 RDW Coeff of Nasrin 12.6 Plt Count 431 MPV 10.0 Immature Gran % (Auto) 0.400 Neut % (Auto) 54.8 Lymph % (Auto) 33.7 Edgar % (Auto) 7.7 Eos % (Auto) 2.7 Baso % (Auto) 0.7 Absolute Neuts (auto) 6.1 Absolute Lymphs (auto) 3.72 Nucleated RBC % 0 Sodium 138 Potassium 3.7 Chloride 105 Carbon Dioxide 26.0 Anion Gap 7 BUN 11 Creatinine 0.61 Estim Creat Clear Calc 104.13 Est GFR (MDRD) Af Amer 144 Est GFR (MDRD) Non-Af 119 BUN/Creatinine Ratio 18.0 Glucose 96 Calcium 9.7 Total Bilirubin 0.40 AST 17 ALT 25 Alkaline Phosphatase 82 Total Protein 7.9 Albumin 3.9 Globulin 4.0 Albumin/Globulin Ratio 1.0 Lipase 53 Serum , Qual NEGATIVE Urine Color Yellow Urine Clarity Clear Urine pH 6.5 Ur Specific Wallace 1.015 Urine Protein Negative Urine Glucose (UA) Normal Urine Ketones Negative Urine Occult Blood Negative Urine Nitrite Negative Urine Bilirubin Negative Urine Urobilinogen Normal Ur Leukocyte Esterase Negative Urine RBC 0 SEEN Urine WBC 0 SEEN Ur Squamous Epith Cells 0-5 SEEN Urine Bacteria 3+ Urine Mucus 0 SEEN Radiography Diagnostic Testing: Clinical Impression(s) from Imaging Studies Abdomen/Pelvis CT 11/25/23 02:59 IMPRESSION: No acute abnormality. Electronically Signed: Bart Barrios DO at 4:46 EDT , Discharge Plan Triage Chief Complaint: Abd Pain ED Provider: Deena Mistry Dx/Rx/DC Orders Clinical Impression: Abdominal pain, Diarrhea Instructions: ED Abdominal Pain Unkn Cause Fem, ED Diarrhea, Unknown Cause Prescriptions: No Action quetiapine [Seroquel] 100 mg tablet 150 mg PO DAILY lamotrigine [Lamictal] 100 mg tablet 100 mg PO DAILY 30 Days Qty: 30 1RF Rx Instructions: 1 po q hs Primary Care Provider: IGNACIA HEARD Referrals: William Aleman MD [Med Staff - Active Staff] - 3-5 Days Care Physician,No Primary [Non-Staff] - Print Language: Colombian Disposition Disposition: Home, Self Care
[2023-11-25 03:07] LABS: Absolute Lymphocyte Count 3.72 X10^3/uL (0.83-4.51); Absolute Neutrophil Count 6.1 X10^3/uL (2.0-7.7); Basophil# 0.08 X10^3/uL; Basophil% 0.7 % (0-1); Eosinophils% 2.7 % (0-5); Hematocrit 41.3 % (37-47); Lymphocyte # 3.72 X10^3/ul (0.83-4.51); Lymphocyte % 33.7 % (19-41); Mean Corp Hgb Conc 33.9 g/dL (32-36); Mean Corpuscular Hgb 30.6 pg (27.0-32.0); Mean Corpuscular Volume 90.2 fL (81-99); Monocyte# 0.85 X10^3/uL; Monocyte% 7.7 % (0-10); NRBC Flagged by Analyzer 0 % (0-5); Neutrophil # 6.06 X10^3/uL (2.7-7.7); Neutrophil % 54.8 % (47-70); Platelet Count 431 K/mm3 (150-450); RBC Distribution Width CV 12.6 % (11.6-14.6); RBC Distribution Width SD 40.8 fl (35.1-43.9); Red Blood Count 4.58 M/mm3 (4.2-5.4); White Blood Count 11.1 K/mm3 (4.4-11.0)
[2023-11-25 03:08] LABS: Mucous, Urine 0 SEEN /hpf (<or=2+); Red Blood Cells-Urine 0 SEEN /hpf (0-5); White Blood Cells 0 SEEN /hpf (0-5)
[2023-11-25 03:09] LABS: Color, Urine Yellow (Yellow); Glucose, Dipstick Normal (Normal); Ketone-Dipstick Negative (Negative); Leukocyte Esterase-Dipstick Negative /ul (Negative); Nitrite-Dipstick Negative (Negative); Occult Blood-Urine Negative /ul (Negative); Protein-Dipstick Negative (Negative); Specific Gravity, Urine 1.015 (1.002-1.030); Urine Bilirubin Dipstick Negative (Negative); Urine Clarity Clear (Clear); Urine Urobilinogen Normal (Normal); Urine pH 6.5 (5.0 - 8.0)
[2023-11-25] MEDS: 0.9% Normal Saline (1000mL) 1,000 ML 125 ML IV (03:10)
[2023-11-25 03:19] LABS: Internal QC Validated? YES +Cl - CLEAR BKGD; Pregnancy, Serum, hCG Quali. NEGATIVE Negative
[2023-11-25 03:27] LABS: AST(SGOT) 17 U/L (15-37); Alanine Aminotransfer ALT/SGPT 25 U/L (13-56); Albumin, Serum 3.9 g/dL (3.2-5.0); Alkaline Phosphatase 82 U/L (45-117); Anion Gap 7 (5-15); BUN 11 mg/dL (7-18); Calcium,Total 9.7 mg/dL (8.5-10.1); Chloride 105 mmol/L (98-107); Creatinine, Serum 0.61 mg/dL (0.55-1.02); EST Glomerular Filtration Rate 119 mL/min (>60); Est Glom Filt Rate - Afr Amer 144 mL/min (>60); Estimated Creatinine Clearance 104.13 ml/min; Glucose 96 mg/dL (74-106); Lipase 53 U/L (13-75); Potassium 3.7 mmol/L (3.5-5.1); Protein, Total 7.9 g/dL (6.4-8.2); Sodium Level 138 mmol/L (136-145)
[2023-11-25 03:28] LABS: Bacteria 3+ /hpf (None Seen); Squamous Epithelial Cells - UA 0-5 SEEN /hpf (5-10)
[2023-11-25 04:49] VITALS: BP 118/71; PULSE 70; RESP 18; O2SAT 95
[2023-11-25 05:02] VITALS: BP 118/71; PULSE 81; RESP 16; TEMP 36.6; O2SAT 97
== END 2023-11-25 05:02 | disposition home or self-care (01) ==
PROVIDERS: Emergency Provider Emergency Medicine; PCP Nurse Practitioner Adult Health; Visit Provider Emergency Medicine
DX: R10.31 Right lower quadrant pain (principal); F31.9 Bipolar disorder, unspecified; R19.7 Diarrhea, unspecified; Z79.899 Other long term (current) drug therapy; F17.290 Nicotine dependence, other tobacco product, uncomplicated
CPT/HCPCS: 74176; 80053; 81001; 83690; 84703; 85025; 96360; 96361; 99283; J7030; A4216

== ENCOUNTER 2024-04-01 15:10 | Emergency (ER) | payer MEDICAID, SELFPAY ==
[2024-04-01 15:11] VITALS: BP 116/79; PULSE 86; RESP 16; TEMP 36.4; O2SAT 100; BMI 21.9
--- NOTE | 2024-04-01 15:17 | RAD_ITS ---
STUDY: X-RAY - LEFT RADIUS AND ULNA REASON FOR EXAM: Female, 33 years old. Pain following a fall. TECHNIQUE: 2 view(s) of the forearm. COMPARISON: None. FINDINGS: There is no demonstrated soft tissue swelling. Normal visualized radius. Normal visualized ulna. RAD/Forearm 2 Views IMPRESSION: Normal x-ray examination of the radius and ulna. Electronically Signed: Bharat Pickens MD at 15:31 EST ,
--- NOTE | 2024-04-01 16:57 | EDS_ITS ---
HPI HPI - Fall History of Present Illness Chief Complaint: Fall Informant: patient Narrative Narrative: Mechanical fall slipping on steps outside falling onto left forearm. No head injuries. Pain left forearm. No other injuries. No anticoagulants. No medications taken prior to arrival. [facility] Medical History Methamphetamine use disorder, mild, in sustained remission Alcohol use disorder Cannabis use disorder Generalized anxiety disorder Bipolar 1 disorder, depressed, partial remission Home Medications ?Medication ?Instructions ?Recorded ?Last Taken ?Type quetiapine 100 mg tablet (Seroquel) 150 mg PO DAILY 08/09/23 Unknown History lamotrigine 100 mg tablet 100 mg PO DAILY 30 days #30 tabs 08/30/23 Unknown Rx (Lamictal) Allergy/AdvReac Type Severity Reaction Status Date / Time latex Allergy Hives Verified 11/25/23 02:54 Opioids - Morphine Analogues AdvReac Other Verified 11/25/23 02:54 Social History Smoking Status: Current every day smoker tobacco type: e-cigarettes ROS ROS ED Constitutional Constitutional ED: Denies fever(s) ENT ENT ED: Denies sore throat Cardiovascular Cardiovascular: Denies chest pain Respiratory/Chest Respiratory/Chest: Denies cough Gastrointestinal Gastrointestinal: Denies abdominal pain, diarrhea, nausea or vomiting Musculoskeletal Musculoskeletal: Reports extremity pain; Denies back pain or neck pain Integumentary Denies wounds Neurologic Neurologic: Denies headache(s), paresthesias or weakness EXAM Physical Exam Const Vital Signs: 04/01/24 15:11 Temperature 97.5 F L Temperature Source Temporal Pulse Rate 86 Respiratory Rate 16 Blood Pressure 116/79 Blood Pressure Mean 91 Pulse Ox 100 Positive well nourished and well developed Constitutional Narrative: GCS 15. General Appearance ED: well developed and NAD HEENT Reports moist mucous membranes normocephalic and atraumatic Eyes General Eye ED: Yes normal appearance of both eyes Neck full ROM Resp normal respiratory effort and normal air movement Effort and Inspection: symmetric chest movement; Negative for respiratory distress Cardio regular rate, regular rhythm and no murmurs Peripheral Pulses: pulses 2+ throughout GI normal to inspection, nondistended, normoactive bowel sounds and non-tender Palpation: Negative for guarding or rebound tenderness present Extremity normal to inspection Extremity Narrative: Left upper extremity: No shoulder or elbow pain. Contusion mid forearm skin intact tender to palpation. No wrist tenderness. Soft compartments. General Extremety ED: Yes tenderness; Negative for edema General Extremity: Negative for edema Neuro oriented x3 and no sensory deficits noted Sensorium / Orientation: awake and alert Skin Skin Narrative: See above MDM MDM MDM Narrative Medical decision making narrative: Interventions / MDM: Differential diagnosis: Forearm contusion, fall Diagnosis considered but do not suspect: Fracture however x-ray negative My EKG interpretation: N/A Imaging independently reviewed and interpreted by myself: 2 view left forearm: No fracture noted. Also read by radiology. External documents reviewed: N/A Test considered but not ordered:N/A ED course: Patient mechanical fall x-ray went through triage. This was interpreted by myself and read by radiology shows no fracture. Alexis wrap provided. She declines any medications in the ED. She will take Tylenol Motrin as needed. Outpatient follow-up with her doctor. All questions were answered. Re-evaluation: stable Disposition discussed with patient/family/significant other: Patient Case discussed with consulting clinician: N/A This note was generated with Memoir dictation software. It may contain incorrect words, spelling, and punctuation that were not noted in checking the note before signing. Radiography Diagnostic Testing: Clinical Impression(s) from Imaging Studies Forearm X-Ray 04/01/24 15:17 IMPRESSION: Normal x-ray examination of the radius and ulna. Electronically Signed: Bharat Pickens MD at 15:31 EST Reading Location ID and State: [facility] / [place] , Service support , Discharge Plan Triage Chief Complaint: Fall ED Provider: Darrell Roman Dx/Rx/DC Orders Clinical Impression: Contusion of forearm, left, Fall Instructions: ED Contusion, Upper Extremity Prescriptions: No Action quetiapine [Seroquel] 100 mg tablet 150 mg PO DAILY lamotrigine [Lamictal] 100 mg tablet 100 mg PO DAILY 30 Days Qty: 30 1RF Rx Instructions: 1 po q hs Primary Care Provider: IGNACIA HEARD Referrals: IGNACIA HEARD CRNP [Primary Care Provider] - 1-2 Weeks Activity Restrictions/Additional Instructions: Forearm x-ray negative. Alexis wrap for comfort. Continue to ice. Christ Motrin every 6 hours as needed. Follow-up with your doctor. Print Language: Maori Disposition Disposition: Home, Self Care
== END 2024-04-01 17:05 | disposition home or self-care (01) ==
LOC: ED 16:58
PROVIDERS: Emergency Provider Emergency Medicine; PCP Nurse Practitioner Adult Health; Visit Provider Emergency Medicine
DX: S50.12XA Contusion of left forearm, initial encounter (principal); F31.9 Bipolar disorder, unspecified; W10.9XXA Fall (on) (from) unspecified stairs and steps, initial encounter; F17.290 Nicotine dependence, other tobacco product, uncomplicated; F41.1 Generalized anxiety disorder

== ENCOUNTER → 2025-01-10 | Emergency (ER) | payer MEDICAID, SELFPAY ==
[2025-01-10 12:59] VITALS: BP 107/73; PULSE 74; RESP 15; TEMP 36.7; O2SAT 97; BMI 23.1
--- NOTE | 2025-01-10 13:39 | CT_ITS ---
PROCEDURE: ABDOMEN/PELVIS WITHOUT CONT 01/10/2025 REASON FOR EXAM: KIDNEY STONE TECHNIQUE: Procedure Code: [id number] Modality: CT Procedure: ABDOMEN/PELVIS WITHOUT CONT Noncontrast technique limits evaluation of the abdominal and pelvic viscera. Coronal and Sagittal reconstruction series were provided. One or more dose reduction techniques were used (e.g., Automated exposure control, adjustment of the mA and/or kV according to patient size, use of iterative reconstruction technique). RADIATION DOSE SUMMARY: CTDlvol: 6.12 mGy DLP: 308.7 mGycm COMPARISON: None. FINDINGS: Lung bases: Clear. Liver: Unremarkable. Gallbladder: Unremarkable. Spleen: Unremarkable. Pancreas: Unremarkable. Adrenals: Unremarkable. Kidneys: No hydronephrosis. No nephrolithiasis. Bladder: Unremarkable. Reproductive Organs: Unremarkable. Bowel: No bowel wall thickening. No bowel obstruction. Appendix: Unremarkable. Lymph nodes: No lymphadenopathy. Vasculature: No aortic aneurysm. Peritoneum / Retroperitoneum: No free air or free fluid. Bones: No acute bony abnormalities. Limited study due to lack of IV and oral contrast. CT/Abdomen/Pelvis without Cont IMPRESSION: No acute abdominopelvic abnormalities. Reading Location: [facility]
[2025-01-10] MEDS: Ketorolac 30 MG/ML Syringe IV (13:45)
[2025-01-10] MEDS: 0.9% Normal Saline (1000mL) 1,000 ML 250 ML IV (13:45)
--- NOTE | 2025-01-10 13:47 | EX.ED.DYSGE1 ---
HPI History of Present Illness Chief Complaint: Flank Pain Informant: patient and spouse/S.O. Narrative Narrative: 34-year-old female presenting to the emergency room with right-sided abdominal pain. Patient states that during the night last night she began to experience a pain in the upper right abdomen going towards the right flank. She states that it does feel like it comes and goes. She has had a prior kidney stone and this feels similar. She denies any fever. No diarrhea. No prior abdominal surgeries. She denies any urinary frequency or blood in the urine. She specifically requests that she not be given any narcotics or addictive medicines. [facility] Medical History Methamphetamine use disorder, mild, in sustained remission Alcohol use disorder Cannabis use disorder Generalized anxiety disorder Bipolar 1 disorder, depressed, partial remission Home Medications ?Medication ?Instructions ?Recorded ?Last Taken ?Type quetiapine 100 mg tablet (Seroquel) 150 mg PO DAILY 08/09/23 Unknown History lamotrigine 100 mg tablet 100 mg PO DAILY 30 days #30 tabs 08/30/23 Unknown Rx (Lamictal) ketorolac 10 mg tablet 10 mg PO Q8H PRN pain #15 tabs 01/10/25 Unknown Rx Allergy/AdvReac Type Severity Reaction Status Date / Time latex Allergy Hives Verified 01/10/25 13:02 Opioids - Morphine Analogues AdvReac Other Verified 01/10/25 13:02 Social History Smoking Status: Current every day smoker tobacco type: e-cigarettes ROS ROS ED Constitutional Constitutional ED: Denies chills, fever(s) or weight loss Eyes Eyes: Denies change in vision or diplopia ENT ENT ED: Denies ear pain, rhinorrhea or sore throat Cardiovascular Cardiovascular: Denies chest pain, orthopnea, palpitations or racing heartbeat Respiratory/Chest Respiratory/Chest: Denies cough, dyspnea or orthopnea Gastrointestinal Gastrointestinal: Reports abdominal pain; Denies diarrhea, nausea or vomiting Genitourinary Genitourinary ED: Denies dysuria, hematuria or urinary frequency Musculoskeletal Musculoskeletal: Denies arthralgias or myalgias Integumentary Denies abscess or rash Neurologic Neurologic: Denies headache(s) or weakness Psychiatric Psychiatric: Denies anxiety, depression, suicidal ideation or suicidal thoughts Endocrine Endocrinology: Denies polydipsia, polyphagia or polyuria Allergic/Immunologic Allergic/Immunologic ED: Denies mouth swelling, tongue swelling or urticaria EXAM Physical Exam Const Vital Signs: 01/10/25 12:59 01/10/25 13:59 01/10/25 14:00 Temperature 98.1 F 98.7 F 97.8 F Temperature Source Oral Oral Oral Pulse Rate 74 73 67 Respiratory Rate 15 16 17 Blood Pressure 107/73 105/67 105/67 Blood Pressure Mean 84 79 79 Pulse Ox 97 100 100 Oxygen Delivery Method Room Air Room Air Room Air 01/10/25 15:00 01/10/25 15:18 Temperature 98.4 F 98.7 F Temperature Source Oral Pulse Rate 65 64 Respiratory Rate 14 14 Blood Pressure 96/65 96/62 Blood Pressure Mean 75 73 Pulse Ox 100 100 Oxygen Delivery Method Room Air Positive well nourished and well developed General Appearance ED: well developed HEENT Reports normocephalic, head/scalp atraumatic and moist mucous membranes Eyes PERRL and EOMs intact bilaterally Neck no lymphadenopathy, supple and no JVD Resp normal respiratory effort and clear to auscultation bilaterally Cardio regular rate, regular rhythm and no murmurs GI Inspection: Negative for abdominal distention Auscultation: normoactive bowel sounds Palpation: soft and tender RUQ and other (Tender to palpation in the axillary midline the upper abdomen); Negative for guarding or rebound tenderness present Back/Spine no CVA tenderness and normal ROM Extremity normal to inspection General Extremety ED: Negative for edema General Extremity: Negative for edema Neuro oriented x3 and CN's II-XII intact bilaterally Sensorium / Orientation: alert Motor Exam: strength 5/5 throughout Psych mental status grossly normal Mood & Affect: Negative for depressed or tearful Skin no rashes or lesions noted and no wounds MDM MDM MDM Narrative Medical decision making narrative: Differential diagnosis includes UTI cholecystitis diverticulitis appendicitis kidney stone Basic blood work was obtained which was negative. test is negative. Urinalysis is negative. CT of the abdomen pelvis without IV contrast obtained which I do not see an obvious cause for the patient's symptomology. Patient received a dose of Toradol which she states did help. I can write for some ketorolac at home. If the patient develops further symptoms worsening has concerns she can certainly return to emergency she can follow-up with primary care if needed History & Record Review Discussion w/independent historian: Patient Additional record(s) reviewed:: Prior ED visit Lab Data Attestation: I reviewed the patient's lab results. Labs: Laboratory Results - last 24 hr 01/10/25 01/10/25 13:20 13:30 WBC 6.3 RBC 3.91 L Hgb 12.0 Hct 35.3 L MCV 90.3 MCH 30.7 MCHC 34.0 RDW Std Deviation 39.8 RDW Coeff of Nasrin 12.1 Plt Count 291 MPV 10.2 Immature Gran % (Auto) 0.200 Neut % (Auto) 50.7 Lymph % (Auto) 39.5 [place] % (Auto) 6.1 Eos % (Auto) 2.9 Baso % (Auto) 0.6 Absolute Neuts (auto) 3.2 Absolute Lymphs (auto) 2.48 Nucleated RBC % 0 Sodium 136 Potassium 3.6 Chloride 103 Carbon Dioxide 22.9 Anion Gap 10 BUN 9 Creatinine 0.67 L Estim Creat Clear Calc 101.20 Est GFR (MDRD) Non-Af 117 BUN/Creatinine Ratio 12.8 Glucose 91 Calcium 9.0 Total Bilirubin 0.27 Direct Bilirubin 0.12 AST 18 ALT 14 Alkaline Phosphatase 49 Total Protein 6.7 Albumin 4.2 Globulin 2.5 Lipase 29 Serum , Qual NEGATIVE Urine Color Straw Urine Clarity Clear Urine pH 6.5 Ur Specific [place] 1.005 Urine Protein Negative Urine Glucose (UA) Normal Urine Ketones Negative Urine Occult Blood Negative Urine Nitrite Negative Urine Bilirubin Negative Urine Urobilinogen Normal Ur Leukocyte Esterase Negative Urine RBC 0 SEEN Urine WBC 0 SEEN Ur Squamous Epith Cells 0 SEEN Urine Bacteria 0 SEEN Urine Mucus 0 SEEN Radiography Diagnostic Testing: Clinical Impression(s) from Imaging Studies Abdomen/Pelvis CT 01/10/25 13:39 IMPRESSION: No acute abdominopelvic abnormalities. Reading Location: [facility] Discharge Plan Triage Chief Complaint: Flank Pain ED Provider: Abilio Bahena Dx/Rx/DC Orders Clinical Impression: Abdominal pain Instructions: Abdominal Pain Prescriptions: New ketorolac 10 mg tablet 10 mg PO Q8H PRN (Reason: pain) Qty: 15 0RF Rx Instructions: maximum total duration of 5 days from all oral, intranasal, or parenteral formulations No Action quetiapine [Seroquel] 100 mg tablet 150 mg PO DAILY lamotrigine [Lamictal] 100 mg tablet 100 mg PO DAILY 30 Days Qty: 30 1RF Rx Instructions: 1 po q hs Primary Care Provider: IGNACIA HEARD Referrals: IGNACIA HEARD CRNP [Primary Care Provider, Family Practice] - 3-5 Days if not improving Print Language: Upper Sorbian Disposition Disposition: Home, Self Care
[2025-01-10 13:52] LABS: Hematocrit 35.3 % (37-47); Hemoglobin 12.0 g/dL (12.0-15.0); Immature Granulocytes Count 0.010 X10^3/uL (0.0-0.0); Mean Corp Hgb Conc 34.0 g/dL (32-36); Mean Corpuscular Volume 90.3 fL (81-99); Mean Platelet Vol. 10.2 fl (6.2-12.0); NRBC Flagged by Analyzer 0 % (0-5); Platelet Count 291 K/mm3 (150-450); RBC Distribution Width CV 12.1 % (11.6-14.6); RBC Distribution Width SD 39.8 fl (35.1-43.9); Red Blood Count 3.91 M/mm3 (4.2-5.4); White Blood Count 6.3 K/mm3 (4.4-11.0)
[2025-01-10 13:52] LABS: Mucous, Urine 0 SEEN /hpf (<or=2+); Red Blood Cells-Urine 0 SEEN /hpf (0-5); Squamous Epithelial Cells - UA 0 SEEN /hpf (5-10)
[2025-01-10 13:56] LABS: Internal QC Validated? YES +Cl - CLEAR BKGD; Pregnancy, Serum, hCG Quali. NEGATIVE Negative; Record Kit Lot#, Serum Preg. 0000980607
[2025-01-10 13:59] VITALS: BP 105/67; PULSE 73; RESP 16; TEMP 37.1; O2SAT 100
[2025-01-10 14:00] VITALS: BP 105/67; PULSE 67; RESP 17; TEMP 36.6; O2SAT 100
[2025-01-10 14:06] LABS: Color, Urine Straw (Yellow); Glucose, Dipstick Normal (Normal); Ketone-Dipstick Negative (Negative); Leukocyte Esterase-Dipstick Negative /ul (Negative); Nitrite-Dipstick Negative (Negative); Occult Blood-Urine Negative /ul (Negative); Protein-Dipstick Negative (Negative); Specific Gravity, Urine 1.005 (1.002-1.030); Urine Bilirubin Dipstick Negative (Negative)
[2025-01-10 14:13] LABS: AST(SGOT) 18 U/L (<=31); Alanine Aminotransfer ALT/SGPT 14 U/L (<=34); Albumin, Serum 4.2 g/dL (3.5-5.0); Alkaline Phosphatase 49 U/L (35-104); Anion Gap 10 (5-15); BUN 9 mg/dL (4-19); BUN/Creat Ratio 12.8 RATIO (10-20); Bilirubin, Direct 0.12 mg/dL (0.00-0.30); Calcium,Total 9.0 mg/dL (7.6-11.0); Carbon Dioxide 22.9 mmol/L (21.0-32.0); Chloride 103 mmol/L (98-108); Estimated Creatinine Clearance 101.20 ml/min (50-250); Globulin 2.5 g/dL (2.2-4.2); Glucose 91 mg/dL (70-99); Lipase 29 U/L (13-75); Potassium 3.6 mmol/L (3.3-5.1)
[2025-01-10 15:00] VITALS: BP 96/65; PULSE 65; RESP 14; TEMP 36.9; O2SAT 100
[2025-01-10 15:18] VITALS: BP 96/62; PULSE 64; RESP 14; TEMP 37.1; O2SAT 100
== END | disposition home or self-care (01) ==
PROVIDERS: Emergency Provider Emergency Medicine; PCP Nurse Practitioner Adult Health; Visit Provider Emergency Medicine
DX: R10.A1 Flank pain, right side (principal); F17.290 Nicotine dependence, other tobacco product, uncomplicated; Z87.442 Personal history of urinary calculi
CPT/HCPCS: 74176; 80048; 80076; 81001; 83690; 84703; 85025; 96374; 96375; 99283; A4216; J2405